=== PATIENT | female | born 1975 | race Caucasian/White ===

== ENCOUNTER 2017-09-26 20:36 | Emergency (ER) | payer MEDICAID ==
[2017-09-26] MEDS ORDERED: predniSONE 20 MG TABLET PO STA (20:38)
[2017-09-26] MEDS ORDERED: HYDROcod/ACET 5/325 Prepack 4 PO STA (20:38)
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
== END 2017-09-26 21:06 | disposition home or self-care (01) ==
LOC: ED 20:36
DX: M54.12 Radiculopathy, cervical region (principal)
CPT/HCPCS: 99281; 99283; J7512

== ENCOUNTER 2018-11-16 14:25 | Emergency (ER) | payer MEDICAID, OTHER ==
[2018-11-16 14:56] LABS: BASOPHILS % (AUTO) 0.2 %; EOSINOPHILS # (AUTO) 0.1 10^3/uL (0.0-0.7); EOSINOPHILS % (AUTO) 1.6 %; HGB - HEMOGLOBIN 15.1 g/dL (12.0-16.0); LYMPHOCYTES # (AUTO) 2.6 10^3/uL (1.5-3.5); LYMPHOCYTES % (AUTO) 31.3 %; MEAN CORPUSCULAR HGB CONC 34.6 g/dL (32.0-36.0); MEAN CORPUSCULAR VOLUME 92.6 fL (81.0-99.0); MEAN PLATELET VOLUME 10.6 fL (7.9-10.8); MONOCYTES # (AUTO) 0.6 10^3/uL (0.0-1.0); MONOCYTES % (AUTO) 6.8 %; NEUTROPHILS % (AUTO) 59.7 %; PLT - PLATELET COUNT 189 10^3/uL (130-450); RED BLOOD COUNT 4.72 10^6/uL (4.20-5.40); RED CELL DISTRIBUTION WIDTH 13.1 % (12.0-15.0); WHITE BLOOD COUNT 8.3 x10^3/uL (4.8-10.8)
--- NOTE | 2018-11-16 15:00 | ED Physician Documentation ---
History of Present Illness - Stated complaint Stated Complaint: LOSS OF VISON/EARS RINGING - Chief complaint Chief Complaint: Neuro - Additonal information Additional information: This is a 43-year-old female with a history of migraines, hysterectomy, who presents with improving vision changes in her right eye, right facial tingling, and right arm discomfort. This afternoon patient was at work, when she walked into her room she stood in the like she was looking through fog on her right eye, this was painless. She also developed some feeling of tingling/reduced sensation over her right face, and in her right arm. Her vision has improved but she still sees flashers and halos in her right eye. She denies surgeries for retinal issues in the past. She is not on any blood thinners. She also has ringing in her ears. Review of Systems Constitutional: denies: Fever Eyes: reports: Decreased vision Ears: reports: Tinnitus/ringing Nose: denies: Congestion Cardiac: denies: Chest pain / pressure Respiratory: denies: Dyspnea GI: denies: Abdominal Pain Neurologic: reports: Numbness. denies: Generalized weakness PD PAST MEDICAL HISTORY - Past Medical History Past Medical History: Yes Neuro: Migraines - Present Medications Home Medications: Ambulatory Orders Medication Instructions Recorded Confirmed HYDROcod/ACETAM 5/325 [Sunflower 5/325] 1 - 2 ea PO Q6H PRN #15 tablet 09/26/17 predniSONE [Deltasone] 20 mg PO [id number] #21 tab 09/26/17 - Allergies Allergies/Adverse Reactions: Allergies Allergy/AdvReac Type Severity Reaction Status Date / Time Penicillins Allergy Rash Verified 11/16/18 14:34 PD ED PE NORMAL - Vitals Vital signs reviewed: Yes - General General: Alert and oriented X 3, No acute distress - HEENT HEENT: Atraumatic, PERRL, EOMI, Other (Conjunctiva normal in appearance. Visual sanchez normal to confrontation bilaterally. ) - Neck Neck: Supple, no meningeal sign - Cardiac Cardiac: RRR - Respiratory Respiratory: Clear bilaterally - Abdomen Abdomen: Normal bowel sounds, Soft, Non tender, Non distended - Derm Derm: Warm and dry - Extremities Extremities: No deformity - Neuro Neuro: Alert and oriented X 3, coding compliance specialist 2-12 intact, No motor deficit, No sensory deficit, Normal speech - Psych Psych: Normal mood, Normal affect Results - Vitals Vitals: Oxygen O2 Source Room air - Labs Labs: Laboratory Tests 11/16/18 11/16/18 11/16/18 14:37 14:50 14:50 WBC 8.3 RBC 4.72 Hgb 15.1 Hct 43.7 MCV 92.6 MCH 32.0 H MCHC 34.6 RDW 13.1 Plt Count 189 MPV 10.6 Neut # (Auto) 5.0 Lymph # (Auto) 2.6 Kittson # (Auto) 0.6 Eos # (Auto) 0.1 Baso # (Auto) 0.0 Absolute Nucleated RBC 0.00 Nucleated RBC % 0.0 Sodium 139 Potassium 3.8 Chloride 103 Carbon Dioxide 24 Anion Gap 12.0 BUN 18 Creatinine 0.7 Estimated GFR (MDRD) 91 Glucose 88 POC Whole Bld Glucose 87 Calcium 9.4 Total Bilirubin 1.1 H AST 13 ALT 13 Alkaline Phosphatase 64 Total Protein 7.3 Albumin 4.3 Globulin 3.0 Albumin/Globulin Ratio 1.4 Lipase 26 TSH 11/16/18 14:50 WBC RBC Hgb Hct MCV MCH MCHC RDW Plt Count MPV Neut # (Auto) Lymph # (Auto) Kittson # (Auto) Eos # (Auto) Baso # (Auto) Absolute Nucleated RBC Nucleated RBC % Sodium Potassium Chloride Carbon Dioxide Anion Gap BUN Creatinine Estimated GFR (MDRD) Glucose POC Whole Bld Glucose Calcium Total Bilirubin AST ALT Alkaline Phosphatase Total Protein Albumin Globulin Albumin/Globulin Ratio Lipase TSH 2.76 - Rads (name of study) Head CT Radiology: Other (No acute intracranial abnormality) PD MEDICAL DECISION MAKING - ED course Complexity details: considered differential (Retinal detachment, vitreous detachment, migraine, glaucoma, ICH) ED course: On exam patient is well-appearing, she is hypertensive. Her neurologic exam is normal. Visual acuity intact, Ocular US shows no obvious abnormality. Visual sanchez intact. IOP 17 on right, [address] is normal. I Re-evaluated at 4:45, no longer having any numbness symptoms, still having foggy vision, feels low energy On repeat evaluation she now has fogginess and flashers in both eyes, though it is improving in her right eye. Overall she says her vision is greatly improved. Her numbness completely improved. Repeat neuro exam normal. I do not see any signs of stoke, her combination of symptoms would be highly unlikely, particularly the numbness resolving and the foggy vision generalizing to both eyes without other vision changes. Occular pathology such as retinal/vitrous detachment highly unlikely given her symptoms wax and wane and spread to both eyes, and are now improving. I think this may be secondary to a migraine, and given her improvement. I feel she is safe for outpatient follow up. If she has persistent symptoms she knows to return, and to see an assistant federal public defender tomorrow. Pt agrees and was discharged. Departure - Departure Disposition: Home, Self Care Clinical Impression: Change in vision Condition: Stable Instructions: ED Cephalgia Unspecified Follow-Up: Your,PCP [Other] (As soon as possible for follow up on symptoms) Luis Angel Vickers [Other] (If having any continued symptoms, call for urgent appt tmrw Address: [address] [place] [id number] ) Comments: You were seen today for vision change in her right eye. Your pressure, visual sanchez, CT scan of your head are unremarkable. I do not see any abnormalities on your ultrasound. This might be a migraine headache. If you are having any continued symptoms, you should see an assistant federal public defender tomorrow. If you are unable to get an appoint with the assistant federal public defender, you may return to an emergency department. If you develop any new symptoms such as confusion, slurred speech, weakness, cuts in your visual field, or numbness, return to the emergency department immediately. Discharge Date/Time: 11/16/18 18:29
[2018-11-16] MEDS ORDERED: PROPARACAINE 0.5% OPHTH DROPS 15 ML RIGHTEYE STA (15:03)
[2018-11-16 15:07] LABS: ALBUMIN 4.3 g/dL (3.2-5.5); ALBUMIN/GLOBULIN RATIO 1.4 (1.0-2.2); BILIRUBIN,TOTAL 1.1 mg/dL (0.2-1.0); CALCIUM 9.4 mg/dL (8.5-10.3); CREATININE 0.7 mg/dL (0.4-1.0); TOTAL PROTEIN 7.3 g/dL (6.7-8.2)
--- NOTE | 2018-11-16 15:38 | CT Report ---
Reason: RIGHT EYE VISION CHANGE, SUBJECTIVE SENSATION CHANGE Procedure Date: 11/16/2018 Accession Number: [id number] / [id number] Procedure: CT - HEAD WO CPT Code: FULL RESULT: EXAM: CT HEAD EXAM DATE: 11/16/2018 03:27 PM. CLINICAL HISTORY: RIGHT EYE VISION CHANGE, SUBJECTIVE SENSATION CHANGE. COMPARISON: None. TECHNIQUE: Multiaxial CT images were obtained from the foramen magnum to the vertex. Reformats: Sagittal and coronal. IV contrast: None. In accordance with CT protocol optimization, one or more of the following dose reduction techniques were utilized for this exam: automated exposure control, adjustment of mA and/or KV based on patient size, or use of iterative reconstructive technique. FINDINGS: Parenchyma: No intraparenchymal hemorrhage. No evidence of mass, midline shift, or CT findings of infarction. Peguero-white differentiation is distinct. Extraaxial Spaces: Normal for age. No subdural or epidural collections identified. Ventricles: Normal in size and position. Sinuses and Orbits: Imaged paranasal sinuses, orbits, and mastoids show no significant abnormality. Bones: No evidence of fracture or calvarial defect. Other: None. IMPRESSION: No acute intracranial CT abnormality. RADIA
[2018-11-16] MEDS ORDERED: KETOROLAC 15 MG/ML VIAL IM STA (17:50)
[2018-11-16] MEDS ORDERED: METOCLOPRAMIDE 10 MG TABLET PO STA (17:50)
[2018-11-16 18:18] VITALS: BP 141/101
== END 2018-11-16 18:29 | disposition home or self-care (01) ==
LOC: ED 14:25
DX: H53.19 Other subjective visual disturbances (principal); R20.2 Paresthesia of skin; H93.19 Tinnitus, unspecified ear
CPT/HCPCS: 36415; 70450; 80053; 83690; 84443; 85025; 96372; 99282; 99284; A9270; J3490

== ENCOUNTER 2019-02-12 09:52 | Outpatient (CLI) | payer MEDICAID ==
[2019-02-12 12:52] LABS: BASOPHILS % (AUTO) 0.4 %; EOSINOPHILS # (AUTO) 0.1 10^3/uL (0.0-0.7); EOSINOPHILS % (AUTO) 1.6 %; HGB - HEMOGLOBIN 16.5 g/dL (12.0-16.0); LYMPHOCYTES # (AUTO) 1.7 10^3/uL (1.5-3.5); LYMPHOCYTES % (AUTO) 22.4 %; MEAN CORPUSCULAR HEMOGLOBIN 30.8 pg (27.0-31.0); MEAN CORPUSCULAR VOLUME 93.5 fL (81.0-99.0); MEAN PLATELET VOLUME 11.1 fL (7.9-10.8); MONOCYTES # (AUTO) 0.5 10^3/uL (0.0-1.0); MONOCYTES % (AUTO) 7.1 %; NEUTROPHILS # (AUTO) 5.1 10^3/uL (1.5-6.6); NEUTROPHILS % (AUTO) 68.1 %; PLT - PLATELET COUNT 201 10^3/uL (130-450); RED BLOOD COUNT 5.35 10^6/uL (4.20-5.40); RED CELL DISTRIBUTION WIDTH 13.2 % (12.0-15.0); WHITE BLOOD COUNT 7.5 x10^3/uL (4.8-10.8)
[2019-02-12 13:29] LABS: ALBUMIN 4.7 g/dL (3.2-5.5); ALBUMIN/GLOBULIN RATIO 1.3 (1.0-2.2); ALKALINE PHOSPHATASE 54 IU/L (42-121); ALT ALANINE AMINOTRANSFERASE 13 IU/L (10-60); AST ASPARTATE AMINOTRANSFERASE 15 IU/L (10-42); BILIRUBIN,TOTAL 1.4 mg/dL (0.2-1.0); BUN - BLOOD UREA NITROGEN 21 mg/dL (6-20); CARBON DIOXIDE - CO2 27 mmol/L (21-32); CHLORIDE 106 mmol/L (101-111); CHOL/HDL RATIO 3.4 (<4.4); CHOLESTEROL 189 mg/dL; CREATININE 0.7 mg/dL (0.4-1.0); GFR - MDRD 90 (>89); GLUCOSE 80 mg/dL (70-100); HDL CHOLESTEROL 55 mg/dL; LDL CHOLESTEROL,CALCULATED 120 mg/dL; LDL/HDL RATIO 2.2 (<4.4); SODIUM 141 mmol/L (135-145); TOTAL PROTEIN 8.4 g/dL (6.7-8.2); VLDL CHOLESTEROL 14 mg/dL
[2019-02-12 14:03] LABS: HEMOGLOBIN A1C 0.54 g/dL; HEMOGLOBIN A1C % 5.1 % (4.6-6.2)
[2019-02-12 21:13] LABS: TRICHOMONAS VAGINALIS DNA NEGATIVE (NEGATIVE)
[2019-02-13 14:31] LABS: HEPATITIS C ANTIBODY REACTIVE (NON-REACTIVE)
[2019-02-13 16:51] LABS: HIV AG/AB 4TH GEN NON-REACTIVE (NON-REACTIVE)
[2019-02-16 12:51] LABS: HSV 1 IGG TYPE SPECIFIC AB 29.7 index; HSV 2 IGG TYPE SPECIFIC AB 15.4 index
[2019-02-17 12:21] LABS: HCV RNA QNT <1.18 NOT DETECTED Log IU/mL (NOT DETECTED); HCV RNA QUANT RT PCR <15 NOT DETECTED IU/mL (NOT DETECTED)
== END 2019-02-12 23:59 | disposition home or self-care (01) ==
LOC: LAB.N 09:52
PROVIDERS: ATTEND Family Medicine
DX: Z00.00 Encounter for general adult medical examination without abnormal findings (principal); Z11.3 Encounter for screening for infections with a predominantly sexual mode of transmission
CPT/HCPCS: 36415; 80053; 80061; 81599; 83036; 83721; 84443; 85025; 86592; 86695; 86696; 86803; 87389; 87491; 87591; 87661

== ENCOUNTER 2019-02-23 08:36 | Outpatient (CLI) | payer MEDICAID ==
--- NOTE | 2019-02-23 10:07 | Mammography Report ---
Reason: ROUTINE MAMMO Procedure Date: 02/23/2019 Accession Number: [id number] / [id number] Procedure: MGN - Screening Mammo Dig Bilat CPT Code: Final Report FULL RESULT: EXAM: Screening Mammo Dig Bilat DATE: 02/23/2019 9:12 AM CLINICAL HISTORY: Patient is a 44-year-old female presenting for baseline screening mammography. No reported family history of breast cancer. TECHNIQUE: (B) - Bilateral CC and MLO views were obtained. COMPARISON: None PARENCHYMAL PATTERN: (D) - The breasts demonstrate heterogeneously dense fibroglandular parenchyma bilaterally. FINDINGS: RIGHT BREAST: There are no suspicious masses, calcifications, or areas of distortion. LEFT BREAST: Obscured nodular asymmetry is noted in the inferior hemisphere. Recommend diagnostic evaluation given baseline examination. IMPRESSION: RIGHT BREAST: Negative examination. BI-RADS category 1. LEFT BREAST: Incomplete examination. BI-RADS category 0. RECOMMENDATION: Targeted diagnostic evaluation of the left breast to include mammography and ultrasound, if warranted. A final impression is pending at this time. BI-RADS CATEGORY: (0) - Incomplete Examination - need additional evaluation. STANDARD QUALIFYING STATEMENTS: 1. This examination was not reviewed with the aid of Computer-Aided Detection (CAD). 2. A negative or benign imaging report should not preclude biopsy if clinically suspicious findings are present. 3. Dense breasts may obscure an underlying neoplasm. 4. This examination was reviewed the aid of 3D breast imaging (tomosynthesis).
== END 2019-02-23 08:37 | disposition home or self-care (01) ==
LOC: DI.N 08:36
PROVIDERS: ATTEND Family Medicine
DX: Z12.31 Encounter for screening mammogram for malignant neoplasm of breast (principal); R92.8 Other abnormal and inconclusive findings on diagnostic imaging of breast
CPT/HCPCS: 77067

== ENCOUNTER 2019-03-10 08:09 | Outpatient (CLI) | payer MEDICAID ==
--- NOTE | 2019-03-10 11:38 | Mammography Report ---
Reason: ABNORMAL MAMMO Procedure Date: 03/10/2019 Accession Number: [id number] / [id number] Procedure: ERIK - Diag Special Views Dig LT CPT Code: Final Report FULL RESULT: EXAM: Diag Special Views Dig LT DATE: 03/10/2019 9:20 AM CLINICAL HISTORY: Diagnostic examination. The patient is recalled from baseline screening examination for nodular asymmetry in the left breast. TECHNIQUE: (L) - Left CC, spot CC, spot MLO, ML images are obtained. Focused left breast ultrasound is performed. COMPARISON: 02/23/2019. PARENCHYMAL PATTERN: (D) - The breast(s) demonstrate(s) heterogeneously dense fibroglandular parenchyma. FINDINGS: Mammographic evaluation demonstrates multiple partially obscured isodense nodules on 3-D mammography in the lower hemisphere of the breast, 2.8 to 4.6 cm from the nipple. Focused left breast ultrasound is performed with demonstrate multiple simple appearing cysts which are well-defined, demonstrate increased through transmission and thin mooney without solid component, typically benign. These correspond in size and location to the mammographic and 3-D tomographic findings, 5:00 3 cm from the nipple measuring up to 0.6 cm, 6:00 3 cm from the nipple measuring up to 0.6 cm. There are no suspicious masses, calcifications, or areas of distortion. IMPRESSION: Benign findings. BI-RADS category 2. RECOMMENDATION: (ANNUAL) - Recommend routine annual screening mammography. BI-RADS CATEGORY: (2) - Benign Findings. STANDARD QUALIFYING STATEMENTS: 1. This examination was not reviewed with the aid of Computer-Aided Detection (CAD). 2. A negative or benign imaging report should not preclude biopsy if clinically suspicious findings are present. 3. Dense breasts may obscure an underlying neoplasm. 4. This examination was reviewed with the aid of 3D breast imaging (tomosynthesis).
== END 2019-03-10 08:10 | disposition home or self-care (01) ==
LOC: DI 08:09
PROVIDERS: ATTEND Family Medicine
DX: N60.12 Diffuse cystic mastopathy of left breast (principal)
CPT/HCPCS: 76642

== ENCOUNTER 2019-04-14 04:49 | Emergency (ER) | payer MEDICAID ==
[2019-04-14] MEDS ORDERED: CHERRY SYRUP 10 ML UDC PO ONE (05:30)
[2019-04-14] MEDS ORDERED: KETOROLAC 60 MG/2 ML VIAL IM STA (05:30)
[2019-04-14] MEDS ORDERED: DEXAMETHASONE 10 MG/ML VIAL PO STA (05:30)
--- NOTE | 2019-04-14 06:14 | ED Physician Documentation ---
PD HPI URI - Stated complaint Stated Complaint: ENGEL/FEVER/COUGH - Chief complaint Chief Complaint: Fever - History obtained from History obtained from: Patient - History of Present Illness Timing - onset: Yesterday Timing duration: Days (2) Timing details: Gradual onset, Still present Associated symptoms: Fever, Nasal congestion, Rhinorrhea, Sinus pain, Dry cough, Other (headache) Improves by: Rest, Medication Similar symptoms before: Diagnosis (migraine and otitis media) Recently seen: Not recently seen - Additional information Additional information: 44-year-old female has developed a fever and cough and she has some pain in her ears and a headache. She states that her headaches will turn into a migraine and she has had have treatment for those previously she states that her headache is mounting now and she really think she needs some treatment this morning. Review of Systems Constitutional: reports: Fever, Chills, Myalgias, Fatigue Eyes: denies: Decreased vision Ears: reports: Ear pain Nose: reports: Rhinorrhea / runny nose, Congestion Throat: denies: Sore throat Cardiac: denies: Chest pain / pressure, Palpitations Respiratory: reports: Cough. 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 - Present Medications Home Medications: Ambulatory Orders Medication Instructions Recorded Confirmed Azithromycin [Zithromax] 250 mg PO DAILY #4 tablet 04/14/19 - Allergies Allergies/Adverse Reactions: Allergies Allergy/AdvReac Type Severity Reaction Status Date / Time Penicillins Allergy Rash Verified 11/16/18 14:34 - Social History Does the pt smoke?: No Smoking Status: Never smoker Does the pt drink ETOH?: No Does the pt have substance abuse?: Yes Substance Use and Type: Marijuana - Immunizations Immunizations are current?: Yes PD ED PE NORMAL - Vitals Vital signs reviewed: Yes (hypertensive ) - General General: Alert and oriented X 3, No acute distress, Well developed/nourished - HEENT HEENT: Atraumatic, PERRL, EOMI, Other (There is mild inflammation to the left TM with some distortion of the landmarks the right TM is clear the pharynx is unremarkable.) - Neck Neck: Supple, no meningeal sign, No bony TTP - Cardiac Cardiac: RRR, No murmur - Respiratory Respiratory: No respiratory distress, Clear bilaterally - Abdomen Abdomen: Soft, Non tender - Back Back: No CVA TTP, No spinal TTP - Derm Derm: Normal color, Warm and dry, No rash - Extremities Extremities: No deformity, No edema - Neuro Neuro: Alert and oriented X 3, butt welder 2-12 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, No motor deficit, No sensory deficit, Normal speech Eye Opening: Spontaneous Motor: Obeys Commands Verbal: Oriented GCS Score: 15 - Psych Psych: Normal mood, Normal affect Results - Vitals Vitals: Vital Signs - 24 hr 04/14/19 04:53 Temperature 37.0 C Heart Rate 80 Respiratory 18 Rate Blood Pressure 139/88 H O2 Saturation 96 Oxygen O2 Source Room air - Labs Labs: Laboratory Tests 04/14/19 05:53 Influenza A (Rapid) Negative Influenza B (Rapid) Negative PD MEDICAL DECISION MAKING - ED course Complexity details: reviewed old records, considered differential, d/w patient ED course: 44-year-old female with a history of migraines has developed a cough and congestion with fever her influenza screen is negative she does have otitis on exam she has had otitis previously she is allergic to penicillin and has had improvement with use of a azithromycin previously here in the emergency department she is administered dexamethasone 10 mg orally and 60 mg of Toradol IM with some improvement in her headache. We will place her on a course of azithromycin for otitis and give her a note for work for 2 days. Departure - Departure Disposition: 01 Home, Self Care Clinical Impression: Otitis media Qualifiers: Otitis media type: suppurative Chronicity: acute Laterality: left Recurrence: non-recurrent Spontaneous tympanic membrane rupture: without spontaneous rupture Qualified Code(s): H66.002 - Acute suppurative otitis media without spontaneous rupture of ear drum, left ear Cephalalgia Qualifiers: Headache type: unspecified Headache chronicity pattern: acute headache Intractability: not intractable Qualified Code(s): R51 - Headache Condition: Stable Instructions: ED Cephalgia Unspecified, ED Otitis Media Acute Adult Follow-Up: HALEY SOTO MD [Primary Care Provider] - Prescriptions: Azithromycin [Zithromax] 250 mg PO DAILY #4 tablet Forms: Activity restrictions
[2019-04-14] MEDS ORDERED: AZITHROMYCIN 250 MG TABLET PO STA (06:23)
[2019-04-14 06:40] VITALS: BP 120/86
== END 2019-04-14 06:42 | disposition home or self-care (01) ==
LOC: ED 04:49
DX: H66.002 Acute suppurative otitis media without spontaneous rupture of ear drum, left ear (principal); R51 Headache; Z88.0 Allergy status to penicillin; Z86.69 Personal history of other diseases of the nervous system and sense organs
CPT/HCPCS: 87275; 87276; 96372; 99283; 99284; A9270

== ENCOUNTER 2019-06-11 12:55 | Outpatient (CLI) | payer MEDICAID ==
--- NOTE | 2019-06-11 23:36 | XRAY Report ---
Reason: NECK PAIN Procedure Date: 06/11/2019 Accession Number: [id number] / [id number] Procedure: XRN - Cervical Spine 2 View CPT Code: Final Report FULL RESULT: EXAM: CERVICAL SPINE RADIOGRAPHY EXAM DATE: 06/11/2019 01:54 PM. CLINICAL HISTORY: NECK PAIN. COMPARISONS: None. TECHNIQUE: 3 views. FINDINGS: Alignment: No spondylolisthesis. There is mild nonspecific reversal of the usual cervical lordosis centered at the C4-C5 level. Bones: The cervical vertebral bodies and posterior elements are well visualized from the skull base through C7-T1. No fractures or bone lesions. Disks: There is degenerative change with mild disk narrowing at C4-C5 and moderate disk narrowing at C5-C6. There is mild anterior and posterior endplate spurring at both levels. Facets: There is mild multilevel facet hypertrophy. Soft Tissues: Normal. No prevertebral soft tissue swelling. The visualized lung apices are clear. IMPRESSION: 1. No acute osseous abnormality of cervical spine. No evidence of fracture or subluxation. 2. Mild to moderate spondylosis and degenerative disk disease at C4-C5 and C5-C6 with mild disk narrowing at C4-C5 and moderate disk narrowing at C5-C6. 3. There is mild nonspecific reversal of the usual cervical lordosis centered at the C4-C5 level. RADIA
--- NOTE | 2019-06-12 14:07 | XRAY Report ---
Reason: NECK/SHOULDER PAIN Procedure Date: 06/11/2019 Accession Number: [id number] / [id number] Procedure: XRN - Shoulder 3 View RT CPT Code: Final Report FULL RESULT: EXAM: RIGHT SHOULDER RADIOGRAPHY EXAM DATE: 06/11/2019 01:54 PM. CLINICAL HISTORY: NECK/SHOULDER PAIN. COMPARISON: None available. TECHNIQUE: 3 views. FINDINGS: Bones: Normal. No fracture or bone lesion. Joints: The glenohumeral and acromioclavicular joints are normal. Soft tissues: The visualized hemithorax is unremarkable. No soft tissue swelling. IMPRESSION: Negative right shoulder. RADIA
== END 2019-06-11 12:56 | disposition home or self-care (01) ==
LOC: DI.N 12:55
PROVIDERS: ATTEND Family Medicine
DX: M47.812 Spondylosis without myelopathy or radiculopathy, cervical region (principal); M50.321 Other cervical disc degeneration at C4-C5 level
CPT/HCPCS: 72040

== ENCOUNTER 2019-09-06 12:35 | Emergency (ER) | payer MEDICAID ==
[2019-09-06 12:43] VITALS: BP 121/82
[2019-09-06] MEDS ORDERED: MELOXICAM 7.5 MG TABLET PO STA (13:06)
[2019-09-06] MEDS ORDERED: predniSONE 20 MG TABLET PO STA (13:06)
[2019-09-06] MEDS ORDERED: oxyCODONE 5 MG TABLET PO STA (13:06)
--- NOTE | 2019-09-06 13:09 | ED Physician Documentation ---
History of Present Illness - Stated complaint Stated Complaint: R HIP PAIN - Chief complaint Chief Complaint: Ext Problem - History obtained from History obtained from: Patient - History of Present Illness Timing: Yesterday Pain level max: 7 Pain level now: 5 - Additonal information Additional information: 44-year-old female presents to the emergency department complaining of right low back/hip pain. Worse with movement and better with rest. 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 Took Motrin and Tylenol without relief. No fevers. No trauma. No numbness or tingling. No loss of bowel or bladder control. No IV drug use. 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 - Present Medications Home Medications: Ambulatory Orders Medication Instructions Recorded Confirmed Azithromycin [Zithromax] 250 mg PO DAILY #4 tablet 04/14/19 Hydrocodone/Acetaminophen 1 - 2 each PO Q6H PRN #14 tablet 09/06/19 [Hydrocodon-Acetaminophen 5-325] Meloxicam [Mobic] 15 mg PO DAILY PRN #20 tablet 09/06/19 predniSONE [Deltasone] 10 mg PO [id number] #42 tab 09/06/19 - Allergies Allergies/Adverse Reactions: Allergies Allergy/AdvReac Type Severity Reaction Status Date / Time Penicillins Allergy Rash Verified 09/06/19 12:40 - Social History Does the pt smoke?: No Smoking Status: Never smoker Does the pt drink ETOH?: No Does the pt have substance abuse?: Yes - Immunizations Immunizations are current?: Yes PD ED PE NORMAL - Vitals Vital signs reviewed: Yes - General General: Alert and oriented X 3, No acute distress - HEENT HEENT: Moist mucous membranes - Neck Neck: Supple, no meningeal sign - Cardiac Cardiac: RRR - Respiratory Respiratory: No respiratory distress, Clear bilaterally - Back Back: Other (Tender to palpation over the right SI joint. Reproduces her pain. No swelling. No skin changes. Otherwise normal exam of the back, spine and hip.) - Derm Derm: Warm and dry - Extremities Extremities: Other (Normal bilateral lower extremity patellar and ankle jerk reflexes. Normal great toe extension bilaterally. no saddle anesthesia) - Neuro Neuro: Alert and oriented X 3, client experience administrator 2-12 intact, No motor deficit, No sensory deficit, Normal speech Results - Vitals Vitals: Vital Signs - 24 hr 09/06/19 12:40 Temperature 36.5 C Heart Rate 74 Respiratory 16 Rate Blood Pressure 121/82 H O2 Saturation 98 Oxygen O2 Source Room air PD MEDICAL DECISION MAKING - ED course Complexity details: considered differential, d/w patient ED course: 44-year-old female with right-sided sacroiliitis. Will place on steroids for home. She is well-appearing, nontoxic. Afebrile. No indication for imaging. No evidence of epidural abscess, cauda equina. No evidence of fracture. Patient counseled regarding signs and symptoms for which I believe and urgent re-evaluation would be necessary. Patient with good understanding of and agreement to plan and is comfortable going home at this time This document was made in part using voice recognition software. While efforts are made to proofread this document, sound alike and grammatical errors may occur. Departure - Departure Disposition: 01 Home, Self Care Clinical Impression: Sacroiliitis Condition: Good Instructions: ED Sacroiliitis Follow-Up: HALEY SOTO MD [Primary Care Provider] - Within 1 week Prescriptions: Hydrocodone/Acetaminophen [Hydrocodon-Acetaminophen 5-325] 1 - 2 each PO Q6H PRN #14 tablet PRN Reason: pain Meloxicam [Mobic] 15 mg PO DAILY PRN #20 tablet PRN Reason: pain predniSONE [Deltasone] 10 mg PO [id number] #42 tab Comments: Use the medications prescribed. Return if you worsen. Follow-up with your doctor for further care. This should improve over the next few days.
== END 2019-09-06 13:32 | disposition home or self-care (01) ==
LOC: ED 12:35
DX: M46.1 Sacroiliitis, not elsewhere classified (principal)
CPT/HCPCS: 99283; 99284; A9270; J7512

== ENCOUNTER 2019-10-10 09:54 | Emergency (ER) | payer MEDICAID ==
[2019-10-10 10:01] VITALS: BP 130/80
[2019-10-10] MEDS ORDERED: CHERRY SYRUP 10 ML UDC PO ONE (10:29)
[2019-10-10] MEDS ORDERED: DEXAMETHASONE 10 MG/ML VIAL PO STA (10:29)
[2019-10-10] MEDS ORDERED: HYDROcod/ACETAM 5/325 MG TABLET PO STA (10:29)
--- NOTE | 2019-10-10 10:33 | ED Physician Documentation ---
PD HPI SKIN - Stated complaint Stated Complaint: SANDRA HAND PX - Chief complaint Chief Complaint: Wound - History obtained from History obtained from: Patient - History of Present Illness Timing - onset: How many days ago (2-3) Timing - duration: Days Timing - details: Gradual onset, Still present Location: RUE, LUE, Other (having significant rash both hands, worse than in the past, with cracking and raw skin despite usual ointments. She is also having some pains in hips and right shoulder. Has some rash back of neck that is worse than usual as well. Hands have chronic rash, but much worse few days.) Quality / character: Painful, Swelling. No: Discolored, Vesicular, Draining Improved by: Oral steroids (she had been on oral steroids recently for hip pain and noted near resolution of chronic hand/neck rash. It is back worse than baseline now.) Associated symptoms: Joint pain. No: Fever, Myalgias, N/V/D Contributing factors: Other (she does do some gardening and uses gloves, so is suggested to check material of it (rubbery kind). She uses nitrile gloves at work sometimes. No other new soaps/chemicals/etc.). No: Exposed to medication, Exposed to soap / lotion Similar symptoms before: No diagnosis (She has seen her primary care and is tried several nciz-[id number] medicines creams and lotions for the rash. She was getting dermatology referral but has not heard back on that referral for the last 2 months. No prescription medicines according to the patient) Review of Systems Constitutional: denies: Fever, Chills Nose: denies: Rhinorrhea / runny nose, Congestion Throat: denies: Sore throat Respiratory: denies: Cough GI: denies: Abdominal Pain, Nausea, Vomiting, Diarrhea Skin: reports: Rash (Both hands of the primary low Tat[place] of chronic rash on the palms and between the fingers. Some on the back of the hands. She also has it often on the back of her neck. None on the mayen or elbows. 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 10/10/19 Hydrocodone/Acetaminophen [[place] 1 each PO Q6H PRN #14 tablet 10/10/19 5-325 Tablet] Vits A and D/White Pet/Lanolin 1 applic TP BID #60 oint...g. 10/10/19 [Vitamin A and D Ointment] dexAMETHasone [Decadron] 4 mg PO DAILY #5 tablet 10/10/19 - Allergies Allergies/Adverse Reactions: Allergies Allergy/AdvReac Type Severity Reaction Status Date / Time Penicillins Allergy Rash Verified 10/10/19 10:01 - Social History Does the pt smoke?: No Smoking Status: Never smoker Does the pt drink ETOH?: No Does the pt have substance abuse?: Yes - Immunizations Immunizations are current?: Yes PD ED PE NORMAL - Vitals Vital signs reviewed: Yes - General General: Alert and oriented X 3, Well developed/nourished, Other (She appears uncomfortable in considerable pain from her hands and is holding them palms open hands up. Both palms are cracked and peeled with raw skin in furrows. There is hyperkeratotic skin otherwise and a rounded area. It extends between the fingers as well and some on the dorsum of the finger) - Neck Neck: Supple, no meningeal sign, No adenopathy, Other (Some hyperkeratotic with redness patch on the back of her neck.) - Cardiac Cardiac: RRR, No murmur, No rub - Respiratory Respiratory: Clear bilaterally - Derm Derm: Normal color, Warm and dry Results - Vitals Vitals: Vital Signs - 24 hr 10/10/19 09:59 Temperature 36.7 C Heart Rate 83 Respiratory 18 Rate Blood Pressure 130/80 O2 Saturation 100 Oxygen O2 Source Room air - Labs Labs: Laboratory Tests 10/10/19 10/10/19 11:04 11:04 WBC 5.3 RBC 4.54 Hgb 14.4 Hct 41.7 MCV 91.9 MCH 31.7 H MCHC 34.5 RDW 12.8 Plt Count 172 MPV 10.4 Neut # (Auto) 2.8 Lymph # (Auto) 1.9 [place] # (Auto) 0.4 Eos # (Auto) 0.2 Baso # (Auto) 0.0 Absolute Nucleated RBC 0.00 Nucleated RBC % 0.0 Sodium 138 Potassium 3.6 Chloride 102 Carbon Dioxide 25 Anion Gap 11.0 BUN 20 Creatinine 0.6 Estimated GFR (MDRD) 108 Glucose 121 H Calcium 9.2 Total Bilirubin 1.3 H AST 12 ALT 13 Alkaline Phosphatase 43 Total Protein 6.4 L Albumin 4.5 Globulin 1.9 L Albumin/Globulin Ratio 2.4 H Lipase 54 H PD MEDICAL DECISION MAKING - ED course Complexity details: reviewed results (Will obtain some autoimmune markers to give a initial work-up start for dermatology. She was given a direct referral name to dermatology and she should call and see if they will take her insurance. 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 Otherwise consider psoriasis versus nummular eczema. Potential for systemic disease such as lupus or rheumatoid), d/w patient Departure - Departure Disposition: 01 Home, Self Care Clinical Impression: Rash of hands, Psoriasiform dermatitis Condition: Stable Record reviewed to determine appropriate education?: Yes Instructions: ED Psoriasis Follow-Up: HALEY SOTO MD [Primary Care Provider] - [facility] [Provider Group] Jay Taylor PA-C [Physician No Access] - Prescriptions: Betamethasone Valerate 1 applic TP BID PRN #15 cream..g. PRN Reason: Dry Skin dexAMETHasone [Decadron] 4 mg PO DAILY #5 tablet Hydrocodone/Acetaminophen [[place] 5-325 Tablet] 1 each PO Q6H PRN #14 tablet PRN Reason: Pain Vits A and D/White Pet/Lanolin [Vitamin A and D Ointment] 1 applic TP BID #60 oint...g. Comments: Be wary of skin contacts for her hand such as gardening gloves and gloves at work. 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 Oral steroid of dexamethasone daily for several days to decrease the flareup. You can also use topical steroid very lightly to the rashes twice daily (this is called betamethasone). You can continue the topical steroid as needed until it improves well or for recurrent flareups. Also use a skin emollient such as vitamin a and D lightly once or twice daily. You can use the skin cream that you have been using as well. Follow-up with dermatology regarding further evaluation of the rash. Prior to the appointment, you can stop using any medications except for a skin lotion for several days to week to allow some of it to come out to aid in diagnosis. You can take pictures of it currently to have to show as well. Discharge Date/Time: 10/10/19 11:08
[2019-10-10 11:10] LABS: BASOPHILS % (AUTO) 0.4 %; EOSINOPHILS # (AUTO) 0.2 10^3/uL (0.0-0.7); EOSINOPHILS % (AUTO) 2.8 %; HGB - HEMOGLOBIN 14.4 g/dL (12.0-16.0); LYMPHOCYTES # (AUTO) 1.9 10^3/uL (1.5-3.5); LYMPHOCYTES % (AUTO) 35.8 %; MEAN CORPUSCULAR HEMOGLOBIN 31.7 pg (27.0-31.0); MEAN CORPUSCULAR HGB CONC 34.5 g/dL (32.0-36.0); MEAN CORPUSCULAR VOLUME 91.9 fL (81.0-99.0); MEAN PLATELET VOLUME 10.4 fL (7.9-10.8); MONOCYTES # (AUTO) 0.4 10^3/uL (0.0-1.0); MONOCYTES % (AUTO) 8.3 %; NEUTROPHILS # (AUTO) 2.8 10^3/uL (1.5-6.6); NEUTROPHILS % (AUTO) 52.1 %; PLT - PLATELET COUNT 172 10^3/uL (130-450); RED BLOOD COUNT 4.54 10^6/uL (4.20-5.40); RED CELL DISTRIBUTION WIDTH 12.8 % (12.0-15.0); WHITE BLOOD COUNT 5.3 x10^3/uL (4.8-10.8)
[2019-10-10 11:24] LABS: ALBUMIN 4.5 g/dL (3.2-5.5); ALBUMIN/GLOBULIN RATIO 2.4 (1.0-2.2); BILIRUBIN,TOTAL 1.3 mg/dL (0.2-1.0); CALCIUM 9.2 mg/dL (8.5-10.3); CREATININE 0.6 mg/dL (0.4-1.0); TOTAL PROTEIN 6.4 g/dL (6.7-8.2)
[2019-10-10 11:49] LABS: RHEUMATOID FACTOR NEGATIVE (Negative)
== END 2019-10-10 11:08 | disposition home or self-care (01) ==
LOC: ED 09:54
DX: L40.8 Other psoriasis (principal); L30.8 Other specified dermatitis; M25.551 Pain in right hip; M25.552 Pain in left hip; M25.511 Pain in right shoulder
CPT/HCPCS: 36415; 80053; 83690; 85025; 85651; 86038; 86430; 99283; 99284; A9270

== ENCOUNTER 2019-11-02 11:15 | Outpatient (CLI) | payer MEDICAID ==
--- NOTE | 2019-11-02 11:56 | XRAY Report ---
PROCEDURE: Lumbar Spine Complete INDICATIONS: SACROILIITIS TECHNIQUE: 4 views of the lumbar spine were acquired. COMPARISON: None. FINDINGS: Bones: 5 mus-[id number] vertebrae are present. There is normal bony alignment. No acute vertebral body compression fractures. Multilevel lumbar spondylitic changes and associated facet arthropathy. Findings are most pronounced at L2-3. No evidence for pars defects on the oblique views. No suspicio us bony lesions. Visualized portions of the sacroiliac joints appear unremarkable. Soft tissues: Overlying bowel gas pattern is normal. No suspicious soft tissue calcifications. IMPRESSION: Lumbar spine without acute fracture or malalignment. Multilevel lumbar spondylosis most pronounced at L2-3. Reviewed by: Juan Mendoza MD on 11/02/2019 11:55 AM PDT Approved by: Juan Mendoza MD on 11/02/2019 11:55 AM PDT Station ID: [id number]
== END 2019-11-02 11:16 | disposition home or self-care (01) ==
LOC: DI 11:15
PROVIDERS: ATTEND Family Medicine
DX: M47.816 Spondylosis without myelopathy or radiculopathy, lumbar region (principal)
CPT/HCPCS: 72110

== ENCOUNTER 2019-11-13 20:15 | Emergency (ER) | payer MEDICAID ==
--- NOTE | 2019-11-13 21:36 | ED Physician Documentation ---
History of Present Illness - Stated complaint Stated Complaint: RT SHOULDER/NECK PX - Chief complaint Chief Complaint: Trauma Ext - History obtained from History obtained from: Patient - Additonal information Additional information: Patient's 44-year-old female with a chief complaint of left trapezius muscle spasm after she received physical therapy with deep tissue stimulation to her upper back bilaterally approximately 24 hours ago she now complains of severe muscle spasms in her left trapezium she denies headache, midline neck pain, fevers or rashes. Review of Systems Constitutional: reports: Reviewed and negative Eyes: reports: Reviewed and negative Ears: reports: Reviewed and negative Nose: reports: Reviewed and negative Throat: reports: Reviewed and negative Cardiac: reports: Reviewed and negative Respiratory: reports: Reviewed and negative GI: reports: Reviewed and negative : reports: Reviewed and negative Skin: reports: Reviewed and negative Musculoskeletal: reports: Other (Left trapezius muscle spasms) Neurologic: reports: Reviewed and negative Psychiatric: reports: Reviewed and negative Endocrine: reports: Reviewed and negative Immunocompromised: reports: Reviewed and negative PD PAST MEDICAL HISTORY - Past Medical History Past Medical History: Yes Cardiovascular: None Respiratory: None Neuro: Migraines Endocrine/Autoimmune: None GI: None PHYS ASST: None : None HEENT: None Psych: None Musculoskeletal: Osteoarthritis Derm: Psoriasis - Past Surgical History 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 10/10/19 Hydrocodone/Acetaminophen [[place] 1 each PO Q6H PRN #14 tablet 10/10/19 5-325 Tablet] Vits A and D/White Pet/Lanolin 1 applic TP BID #60 oint...g. 10/10/19 [Vitamin A and D Ointment] dexAMETHasone [Decadron] 4 mg PO DAILY #5 tablet 10/10/19 diazePAM [Valium] 5 mg PO BID PRN #7 tablet 11/13/19 - Allergies Allergies/Adverse Reactions: Allergies Allergy/AdvReac Type Severity Reaction Status Date / Time Penicillins Allergy Rash Verified 11/13/19 20:25 - Social History Does the pt smoke?: No Smoking Status: Never smoker Does the pt drink ETOH?: No Does the pt have substance abuse?: Yes Substance Use and Type: Marijuana - Immunizations Immunizations are current?: Yes - POLST Patient has POLST: No PD ED PE NORMAL - Vitals Vital signs reviewed: Yes - General General: Alert and oriented X 3, No acute distress, Well developed/nourished - HEENT HEENT: PERRL - Neck Neck: Supple, no meningeal sign, No bony TTP, Thyroid normal, No JVD, No bruit, Other (The neck is soft and supple there is no cervical step-offs or deformities there is no swelling or ecchymosis or crepitus.Full range of motion of the cervical spine in flexion, extension, sidebending and rotation on passive and active range of motion.) - Cardiac Cardiac: RRR, No murmur, Strong equal pulses - Respiratory Respiratory: No respiratory distress, Clear bilaterally - Abdomen Abdomen: Normal bowel sounds, Soft, Non tender, Non distended - Back Back: No CVA TTP, No spinal TTP, Other (Ropiness without edema or bogginess of the left trapezius region no ecchymosis no swelling no crepitus there is diffuse muscle spasms in the left trapezius as well as the left rhomboid and myofascial restriction as well.) - Derm Derm: Warm and dry - Extremities Extremities: No deformity - Neuro Neuro: Alert and oriented X 3, lighting adviser 2-12 intact, No motor deficit, No sensory deficit, Normal speech - Psych Psych: Normal mood, Normal affect Results - Vitals Vitals: Vital Signs - 24 hr 11/13/19 20:22 Temperature 37.0 C Heart Rate 82 Respiratory 18 Rate Blood Pressure 136/81 H O2 Saturation 96 Oxygen O2 Source Room air PD MEDICAL DECISION MAKING - ED course Complexity details: considered differential ED course: Patient's history and physical exam are consistent with acute muscle spasm and myofascial restriction. There is no midline step-offs or deformities of the cervical thoracic or lumbar spine. Patient will be treated with p.o. Valium. Departure - Departure Disposition: Home, Self Care Clinical Impression: Trapezius muscle spasm Condition: Stable Instructions: ED Spasm Muscle Follow-Up: HALEY SOTO MD [Primary Care Provider] - Prescriptions: diazePAM [Valium] 5 mg PO BID PRN #7 tablet PRN Reason: Spasms Comments: Please follow-up with your primary care provider on Friday. Take Valium as needed for your muscle spasms.
[2019-11-13] MEDS ORDERED: diazePAM 5 MG TABLET PO STA (21:41)
[2019-11-13 21:54] VITALS: BP 115/76
== END 2019-11-13 21:54 | disposition home or self-care (01) ==
LOC: ED 20:15
DX: M62.830 Muscle spasm of back (principal)
CPT/HCPCS: 99282; 99284; A9270

== ENCOUNTER 2020-01-20 09:18 | Emergency (ER) | payer MEDICAID ==
[2020-01-20] MEDS ORDERED: TETANUS/DIPHTHERIA/PERTUSSIS 0.5 ML SYRINGE IM ONE (09:31)
--- NOTE | 2020-01-20 09:58 | ED Physician Documentation ---
PD HPI UPPER EXT INJURY - Stated complaint Stated Complaint: FINGER LAC - Chief complaint Chief Complaint: Laceration - History obtained from History obtained from: Patient - History of Present Illness Location: Left, Finger (3rd) Type of injury: Laceration Where injury occurred: Home Timing - onset: Last night Timing - duration: Hours (12) Timing - details: Abrupt onset Pain level max: 4 Pain level now: 3 Improved by: Rest Worsened by: Moving, Palpating Review of Systems Constitutional: denies: Fever, Chills Respiratory: denies: Cough GI: denies: Vomiting, Diarrhea PD PAST MEDICAL HISTORY - Past Medical History Past Medical History: Yes Cardiovascular: None Respiratory: None Neuro: Migraines Endocrine/Autoimmune: None GI: None 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 : None HEENT: None Psych: None Musculoskeletal: Osteoarthritis Derm: Psoriasis - Past Surgical History 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 - Allergies Allergies/Adverse Reactions: Allergies Allergy/AdvReac Type Severity Reaction Status Date / Time Penicillins Allergy Rash Verified 01/20/20 09:27 - Social History Does the pt smoke?: No Smoking Status: Never smoker Does the pt drink ETOH?: No Does the pt have substance abuse?: Yes - Immunizations Immunizations are current?: Yes - POLST Patient has POLST: No PD ED PE NORMAL - Vitals Vital signs reviewed: Yes - General General: Alert and oriented X 3, No acute distress - HEENT HEENT: Moist mucous membranes - Neck Neck: Supple, no meningeal sign - Derm Derm: Warm and dry - Neuro Neuro: Alert and oriented X 3 PD ED PE EXPANDED - Extremities SANDRA UE/Hands Visual: 1 - laceration (1cm, superficial. NVI. no tendon injury.) Results - Vitals Vitals: Vital Signs - 24 hr 01/20/20 09:23 Temperature 36.3 C L Heart Rate 68 Respiratory 16 Rate Blood Pressure 132/74 H O2 Saturation 99 Oxygen O2 Source Room air Procedures - Laceration (location) L 3rd digit Length in cm: 1 Wound type: Linear, Superficial, Clean Neurovascular status: Sensory intact, Motor intact, Vascular intact Tendon involvement: Tendon intact Wound Preparation: Irrigated copiously NS, Wound explored, To the base Skin layer closure: Dermabond Other: No complications, Tetanus booster given (tdap) Complexity: Simple PD MEDICAL DECISION MAKING - ED course Complexity details: considered differential, d/w patient ED course: Patient with a laceration to the left third digit. This was repaired using Dermabond. Will place in a finger splint to minimize movement. Patient decli maris sutures. Neurovascularly intact. No signs of infection. Warnings of infection and instructions on wound care given at bedside. Also counseled on how to minimize scarring. Tdap given patient counseled regarding signs and symptoms for which I believe and urgent re-evaluation would be necessary. Patient with good understanding of and agreement to plan and is comfortable going home at this time This document was made in part using voice recognition software. While efforts are made to proofread this document, sound alike and grammatical errors may occur. Departure - Departure Disposition: 01 Home, Self Care Clinical Impression: Finger laceration Qualifiers: Encounter type: initial encounter Finger: middle finger Damage to nail status: without damage Foreign body presence: without foreign body Laterality: left Qualified Code(s): S61.213A - Laceration without foreign body of left middle finger without damage to nail, initial encounter Condition: Good Instructions: ED Laceration Hand Follow-Up: HALEY SOTO MD [Primary Care Provider] - As Needed Comments: Return if you notice redness, swelling or drainage from the wound. You were g iven a tetanus shot today. You can remove the splint in 1 to 2 days. Do not apply ointment as this will dissolve the glue.
[2020-01-20 10:11] VITALS: BP 135/93
== END 2020-01-20 10:11 | disposition home or self-care (01) ==
LOC: ED 09:18
DX: S61.213A Laceration without foreign body of left middle finger without damage to nail, initial encounter (principal); W26.8XXA Contact with other sharp object(s), not elsewhere classified, initial encounter; Y92.009 Unspecified place in unspecified non-institutional (private) residence as the place of occurrence of the external cause; Z23 Encounter for immunization
CPT/HCPCS: 12001; 90471; 99282; 99283

== ENCOUNTER 2020-02-07 20:05 | Outpatient (CLI) | payer MEDICAID ==
[2020-02-07 20:28] LABS: HGB - HEMOGLOBIN 14.7 g/dL (12.0-16.0); WHITE BLOOD COUNT 7.5 x10^3/uL (4.8-10.8)
[2020-02-07 20:42] LABS: CREATININE 0.7 mg/dL (0.4-1.0)
[2020-02-07 21:06] LABS: HCG,QUALITATIVE BLOOD NEGATIVE
== END 2020-02-07 20:06 | disposition home or self-care (01) ==
LOC: LAB 20:05
PROVIDERS: ATTEND Student in an Organized Health Care Education/Training Program
DX: L40.3 Pustulosis palmaris et plantaris (principal); Z79.899 Other long term (current) drug therapy
CPT/HCPCS: 82565; 84450; 84460; 84520; 84703; 85014; 85018; 85049; 87522

== ENCOUNTER 2020-04-26 08:00 | Outpatient (CLI) | payer MEDICAID ==
[2020-04-26 10:23] LABS: BASOPHILS % (AUTO) 0.3 %; EOSINOPHILS # (AUTO) 0.1 10^3/uL (0.0-0.7); EOSINOPHILS % (AUTO) 2.1 %; LYMPHOCYTES # (AUTO) 1.5 10^3/uL (1.5-3.5); LYMPHOCYTES % (AUTO) 24.2 %; MEAN CORPUSCULAR HEMOGLOBIN 32.1 pg (27.0-31.0); MEAN CORPUSCULAR VOLUME 94.4 fL (81.0-99.0); MEAN PLATELET VOLUME 10.3 fL (7.9-10.8); MONOCYTES # (AUTO) 0.4 10^3/uL (0.0-1.0); MONOCYTES % (AUTO) 6.2 %; NEUTROPHILS # (AUTO) 4.2 10^3/uL (1.5-6.6); NEUTROPHILS % (AUTO) 66.9 %; PLT - PLATELET COUNT 203 10^3/uL (130-450); RED BLOOD COUNT 4.99 10^6/uL (4.20-5.40); RED CELL DISTRIBUTION WIDTH 13.3 % (12.0-15.0); WHITE BLOOD COUNT 6.3 x10^3/uL (4.8-10.8)
[2020-04-26 10:45] LABS: ALBUMIN 4.8 g/dL (3.2-5.5); ALBUMIN/GLOBULIN RATIO 1.5 (1.0-2.2); BILIRUBIN,TOTAL 1.6 mg/dL (0.2-1.0); CALCIUM 9.8 mg/dL (8.5-10.3); CREATININE 0.7 mg/dL (0.4-1.0)
== END 2020-04-26 23:59 | disposition home or self-care (01) ==
LOC: LAB 08:00
PROVIDERS: ATTEND Registered Nurse
DX: L40.3 Pustulosis palmaris et plantaris (principal); Z79.899 Other long term (current) drug therapy
CPT/HCPCS: 36415; 80053; 81599; 85025; 85651; 86140; 86480; 86704; 86706; 86708; 86803; 87340

== ENCOUNTER 2020-04-30 13:06 | Emergency (ER) | payer MEDICAID ==
[2020-04-30] MEDS ORDERED: CHERRY SYRUP 10 ML UDC PO ONE (13:29)
[2020-04-30] MEDS ORDERED: DEXAMETHASONE 10 MG/ML VIAL PO STA (13:29)
--- NOTE | 2020-04-30 13:32 | ED Physician Documentation ---
History of Present Illness - Stated complaint Stated Complaint: ARTHRITIS FLARE UP - Chief complaint Chief Complaint: General - Additonal information Additional information: 45-year-old female presents the emergency department for generalized body and joint pain. She reports a history of psoriasis but with history of recurrent joint pain there is suspicion that she may have psoriatic arthritis. She has referral to a wrapper stitcher and that appointment is scheduled for June 10 of this year. She takes methotrexate once a week. Over the last 24 hours she has been using Tylenol and ibuprofen without relief. There is no joint swelling. There is no fevers. No recent falls or trauma. Patient arrives tearful but has a normal gait. She denies any recent travel, cough, congestion, nausea pain dysuria or abdominal pain. Review of Systems Constitutional: reports: Myalgias. denies: Fever, Chills Eyes: reports: Reviewed and negative Ears: reports: Reviewed and negative Nose: reports: Reviewed and negative Throat: reports: Reviewed and negative Cardiac: reports: Reviewed and negative Respiratory: reports: Reviewed and negative GI: denies: Abdominal Pain, Nausea, Vomiting, Hematemesis : denies: Frequency, Hesitancy Skin: reports: Rash (psoriasis) Musculoskeletal: reports: Joint pain. 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: Hysterectomy - Allergies Allergies/Adverse Reactions: Allergies Allergy/AdvReac Type Severity Reaction Status Date / Time Penicillins Allergy Rash Verified 04/30/20 13:19 - Social History Does the pt smoke?: No Smoking Status: Never smoker Does the pt drink ETOH?: No Does the pt have substance abuse?: Yes - Immunizations Immunizations are current?: Yes - POLST Patient has POLST: No PD ED PE NORMAL - General General: Alert and oriented X 3, Well developed/nourished, Other (tearful, crying) - HEENT HEENT: PERRL, Ears normal, Moist mucous membranes - Neck Neck: Supple, no meningeal sign, No adenopathy - Cardiac Cardiac: RRR, No murmur - Respiratory Respiratory: No respiratory distress, Clear bilaterally - Abdomen Abdomen: Normal bowel sounds, Soft, Non tender - Back Back: No CVA TTP - Derm Derm: Normal color, Warm and dry, No rash - Extremities Extremities: No deformity, Normal ROM s pain, No edema, Other (Patient reports generalized joint pain in hands and feet and knees. No swelling no erythema. Normal gait. Normal grasp and fine motor movement.) - Neuro Neuro: Alert and oriented X 3, puddler pile driving 2-12 intact, No motor deficit Eye Opening: Spontaneous Motor: Obeys Commands Verbal: Oriented GCS Score: 15 Results - Vitals Vitals: Vital Signs - 24 hr 04/30/20 13:19 Temperature 37.3 C Heart Rate 98 Respiratory 18 Rate Blood Pressure 124/78 O2 Saturation 98 Oxygen O2 Source Room air PD MEDICAL DECISION MAKING - ED course Complexity details: reviewed results, re-evaluated patient, considered differential, d/w patient ED course: 45-year-old female presents to the emergency department with 24 hours of generalized joint and body pain. No fevers. She does have a history of psoriasis and recently received a referral to a wrapper stitcher for evaluation of possible psoriatic arthritis. She is taking ibuprofen and Tylenol without relief of pain at home. Here in the emergency department she will be given 10 mg of Decadron but no further medication or narcotic on discharge. I do recommend that she continue the Motrin and Tylenol as she has been using at home. She did have routine screening labs completed 4 days ago and of note normal CRP and white count. Vital signs here are normal without fever. Departure - Departure Disposition: Home, Self Care Clinical Impression: Joint pain Qualifiers: Joint pain location: unspecified Qualified Code(s): M25.50 - Pain in unspecifi ed joint Condition: Stable Record reviewed to determine appropriate education?: Yes Follow-Up: HALEY SOTO MD [Primary Care Provider] - Comments: Lisa please continue to follow-up with a wrapper stitcher that you are scheduled with on June 10. Today in the emergency department we gave you a one-time dose of [place] a pain medication. We also gave you a one-time dose of an oral steroid called Decadron. This typically lasts to help control pain and swelling for 3 to 4 days. The labs that you had obtained on the were all essentially normal. If at any point you have fevers, cannot ambulate, have joint swelling or redness please return to the ER for a second look.
[2020-04-30] MEDS ORDERED: HYDROcod/ACETAM 5/325 MG TABLET PO STA (13:33)
[2020-04-30 14:02] VITALS: BP 126/93
== END 2020-04-30 14:09 | disposition home or self-care (01) ==
LOC: ED 13:06
DX: M25.542 Pain in joints of left hand (principal); M25.541 Pain in joints of right hand; M25.572 Pain in left ankle and joints of left foot; M25.571 Pain in right ankle and joints of right foot; M25.562 Pain in left knee; M25.561 Pain in right knee; L40.9 Psoriasis, unspecified; M19.90 Unspecified osteoarthritis, unspecified site
CPT/HCPCS: 99282; 99284; A9270

== ENCOUNTER 2020-07-23 14:38 | Emergency (ER) | payer MEDICAID ==
--- OUTSIDE RECORDS SUMMARY | 2020-07-23 14:41 | EXTERNAL MEDICAL SUMMARY RPT | Continuity of Care Document ---
:1975 Demographics Phone Unavailable Preferred Language Unknown Marital Status Unknown Temple Affiliation Unknown Race Unknown Ethnic Group Unknown Author Organization [facility] Address [address] [id number] Phone Social History date description facility [phone]
[2020-07-23 14:50] VITALS: BP 139/94
--- OUTSIDE RECORDS SUMMARY | 2020-07-23 14:53 | EXTERNAL MEDICAL SUMMARY RPT | Continuity of Care Document ---
:1975 Demographics Phone Unavailable Preferred Language Unknown Marital Status Unknown Latter Day Affiliation Unknown Race Unknown Ethnic Group Unknown Author Organization [facility] Address [address] [place] [address] Phone Social History date description facility [phone]
--- NOTE | 2020-07-23 14:55 | ED Physician Documentation ---
PD HPI LOWER EXT INJURY - Stated complaint Stated Complaint: R FOOT INJ - Chief complaint Chief Complaint: Ext Problem - History obtained from History obtained from: Patient - History of Present Illness PD HPI LOW EXT INJURY LOCATION: Right, Foot Type of injury: Blunt / blow (Accidentally kicked a chair 3 nights ago. 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: None : None HEENT: None Psych: None Musculoskeletal: Osteoarthritis Derm: Psoriasis - Past Surgical History Past Surgical History: Yes /GUIDE ESCORT: Hysterectomy - Present Medications Home Medications: Ambulatory Orders Medication Instructions Recorded Confirmed Adalimumab [Humira] 40 mg SQ UD 07/23/20 07/23/20 - Allergies Allergies/Adverse Reactions: Allergies Allergy/AdvReac Type Severity Reaction Status Date / Time Penicillins Allergy Rash Verified 07/23/20 14:49 - Social History Does the pt smoke?: No Smoking Status: Never smoker Does the pt drink ETOH?: No Does the pt have substance abuse?: Yes - Immunizations Immunizations are current?: Yes - POLST Patient has POLST: No PD ED PE NORMAL - Vitals Vital signs reviewed: Yes - General General: Alert and oriented X 3, No acute distress - Extremities Extremities: Other (Mild TTP R 5th toe and MT. No deformity.) - Neuro Neuro: Alert and oriented X 3, Normal speech Results - Vitals Vitals: Vital Signs - 24 hr 07/23/20 14:43 Temperature 36.4 C L Heart Rate 82 Respiratory 16 Rate Blood Pressure 139/94 H O2 Saturation 98 Oxygen O2 Source Room air - Rads (name of study) 3v R foot Radiology: EMP read contemporaneously (NAD) Departure - Departure Disposition: 01 Home, Self Care Clinical Impression: Toe sprain Qualifiers: Encounter type: initial encounter Qualified Code(s): S93.509A - Unspecified sprain of unspecified toe(s), initial encounter Condition: Good Record reviewed to determine appropriate education?: Yes Instructions: ED Sprain Foot Comments: Tylenol or ibuprofen as needed for pain, recheck with your doctor in 1 to 2 weeks if not improving. Discharge Date/Time: 07/23/20 15:09
--- NOTE | 2020-07-23 15:21 | XRAY Report ---
PROCEDURE: Foot 3 View RT INDICATIONS: injury TECHNIQUE: 3 views of the foot were acquired. COMPARISON: None FINDINGS: Bones: No fractures or dislocations. No suspicious bony lesions. Incidental note is made of a bipa rtite medial sesamoid bone. Incidental note is made of an accessory ossicle, an os peroneum. Soft tissues: No tibiotalar joint effusion. Achilles tendon appears normal. IMPRESSION: No displaced fractures are seen on this plain study. In this patient with a given history of trauma, please correlate with focal tenderness. If clinically appropriate, please consider a short-term follow-up plain films series versus a dedicated CT study. Reviewed by: Tahir Stephens MD on 07/23/2020 2:20 PM AKCHRISS Approved by: Tahir Stephens MD on 07/23/2020 2:20 PM AKCHRISS Station ID: [id number]
== END 2020-07-23 15:09 | disposition home or self-care (01) ==
LOC: ED 14:38
DX: S93.601A Unspecified sprain of right foot, initial encounter (principal); W22.09XA Striking against other stationary object, initial encounter
CPT/HCPCS: 99282; 99283

== ENCOUNTER 2020-07-27 07:49 | Emergency (ER) | payer MEDICAID ==
--- OUTSIDE RECORDS SUMMARY | 2020-07-27 07:52 | EXTERNAL MEDICAL SUMMARY RPT | Continuity of Care Document ---
:1975 Demographics Phone Unavailable Preferred Language Unknown Marital Status Unknown Anabaptist Affiliation Unknown Race Unknown Ethnic Group Unknown Author Organization [facility] Address [address] [phone] Phone Social History date description facility [phone]
--- OUTSIDE RECORDS SUMMARY | 2020-07-27 08:02 | EXTERNAL MEDICAL SUMMARY RPT | Continuity of Care Document ---
:1975 Demographics Phone Unavailable Preferred Language Unknown Marital Status Unknown Orthodoxy Affiliation Unknown Race Unknown Ethnic Group Unknown Author Organization [facility] Address [address] [place] [address] Phone Social History date description facility [phone]
--- NOTE | 2020-07-27 08:15 | ED Physician Documentation ---
PD HPI LOWER EXT INJURY - Stated complaint Stated Complaint: RT FOOT PX - Chief complaint Chief Complaint: Ext Problem - History obtained from History obtained from: Patient - History of Present Illness PD HPI LOW EXT INJURY LOCATION: Right, Foot Type of injury: Twist (had struck foot on curb or such a week ago with pain. Seen in ER with normal xray. Given post op shoe. Pain with walking and she says felt a pop and more pain in foot last evening.). No: Fall Timing - onset: How many weeks ago (1) Timing - duration: Weeks (1) Timing - details: Abrupt onset, Still present Worsened by: Moving, Palpating Associated symptoms: Swelling (mild dorsum of foot.). No: Weakness, Numbness, Discolored (no redness) Similar symptoms before: Has not had sx before Recently seen: Emergency Dept Review of Systems Constitutional: denies: Fever, Chills Nose: denies: Rhinorrhea / runny nose, Congestion Throat: denies: Sore throat Respiratory: denies: Cough Skin: reports: Rash (history of psoriasis that has been worse the past week or two. Mostly hands and elbows.). 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 - Present Medications Home Medications: Ambulatory Orders Medication Instructions Recorded Confirmed Adalimumab [Humira] 40 mg SQ UD 07/23/20 07/23/20 HYDROcod/ACETAM 5/325 [[place] 5/325] 1 ea PO Q6H PRN #12 tablet 07/27/20 dexAMETHasone [Decadron] 4 mg PO DAILY #5 tablet 07/27/20 - Allergies Allergies/Adverse Reactions: Allergies Allergy/AdvReac Type Severity Reaction Status Date / Time Penicillins Allergy Rash Verified 07/27/20 08:13 - Social History Does the pt smoke?: No Smoking Status: Never smoker Does the pt drink ETOH?: No Does the pt have substance abuse?: Yes - Immunizations Immunizations are current?: Yes - POLST Patient has POLST: No PD ED PE NORMAL - Vitals Vital signs reviewed: Yes - General General: Alert and oriented X 3, No acute distress, Well developed/nourished - Derm Derm: Normal color, Warm and dry, Other (scaling rash on hands/palms and upper forearms c/w psoriasis. ) - Extremities Extremities: Other (right plaster tender without deformity dorsum laterally and near base 4th/5th toes. No redness nor warmth. No skin sores. ) - Neuro Neuro: Alert and oriented X 3, No motor deficit, No sensory deficit Results - Vitals Vitals: Vital Signs - 24 hr 07/27/20 07/27/20 08:04 09:52 Temperature 37 C 36.6 C Heart Rate 83 67 Respiratory 16 16 Rate Blood Pressure 118/89 H 138/103 H O2 Saturation 97 97 Oxygen O2 Source Room air PD MEDICAL DECISION MAKING - ED course Complexity details: reviewed results (no fracture/dislocation), considered differential (foot pain with recent xray but felt pop and more pain, so xrayed again to eval for stress fracture/etc. Still normal. Presume strain with loose ligament or such in midfoot. no history of gout. consider some psoriatic arthritis possible. ), d/w patient Departure - Departure Disposition: Home, Self Care Clinical Impression: Foot sprain Qualifiers: Encounter type: subsequent encounter Laterality: right Qualified Code(s): S93.601D - Unspecified sprain of right foot, subsequent encounter Condition: Stable Record reviewed to determine appropriate education?: Yes Instructions: ED Sprain Foot Follow-Up: Shalom Calderón DPM [Physician No Access] - Noman Ohara MD [Provider Admit Priv/Credential] - Prescriptions: dexAMETHasone [Decadron] 4 mg PO DAILY #5 tablet HYDROcod/ACETAM 5/325 [[place] 5/325] 1 ea PO Q6H PRN #12 tablet PRN Reason: Pain Comments: Continue the firm soled shoe. Off work today and then you will have a few days off. Limited walking and activity for 3 to 5 days. Continue anti-inflammatories with either ibuprofen 2- 3 times a day or the Decadron steroid. Add Tylenol 500 mg 4 times daily regularly and to that add hydrocodone if needed for worse pain every 4-6 hours. Follow-up with orthopedics or follow up specialist if not improved over the next week. Forms: Activity restrictions Discharge Date/Time: 07/27/20 09:53
[2020-07-27] MEDS ORDERED: CHERRY SYRUP 10 ML UDC PO ONE (08:29)
[2020-07-27] MEDS ORDERED: HYDROcod/ACETAM 5/325 MG TABLET PO STA (08:29)
[2020-07-27] MEDS ORDERED: DEXAMETHASONE 10 MG/ML VIAL PO STA (08:29)
--- NOTE | 2020-07-27 08:52 | XRAY Report ---
PROCEDURE: Foot 3 View RT INDICATIONS: recent injury, new pop and pain since TECHNIQUE: 3 views of the foot were acquired. COMPARISON: None FINDINGS: Incidental os peroneum. Moderate first MTP joint degeneration. Chronic calcification or ossicle proje cts adjacent to the dorsal head of the talus.Scattered degenerative spurring and subchondral sclerosi s. Soft tissues: No tibiotalar joint effusion. Achilles tendon appears normal. IMPRESSION: No definite fracture however follow-up radiographs in 10 days could be performed if the patient's sy mptoms do not improve to exclude occult fracture/assess for healing sclerosis. Or MRI could be perfor med as clinically necessary. Reviewed by: Tyson Watkins MD on 07/27/2020 8:51 AM PDT Approved by: Tyson Watkins MD on 07/27/2020 8:51 AM PDT Station ID: [id number]
[2020-07-27 09:53] VITALS: BP 138/103
== END 2020-07-27 09:53 | disposition home or self-care (01) ==
LOC: ED 07:49
DX: S93.601A Unspecified sprain of right foot, initial encounter (principal); X50.1XXA Overexertion from prolonged static or awkward postures, initial encounter
CPT/HCPCS: 73630; 99283; A9270

== ENCOUNTER 2020-12-21 06:58 | Emergency (ER) | payer MEDICAID ==
[2020-12-21] MEDS ORDERED: diphenhydrAMINE INJ 50 MG/ML VIAL IVP STA (07:17)
[2020-12-21] MEDS ORDERED: METOCLOPRAMIDE 10 MG/2 ML VIAL IVP STA (07:17)
[2020-12-21] MEDS ORDERED: KETOROLAC 15 MG/ML VIAL IVP STA (07:17)
--- NOTE | 2020-12-21 07:18 | ED Physician Documentation ---
PD HPI HEADACHE - Stated complaint Stated Complaint: HEAD PX - Chief complaint Chief Complaint: Neuro - History obtained from History obtained from: Patient - History of Present Illness Worst headache ever?: No: Worst headache ever? - Additional information Additional information: 45-year-old woman with history of migraines and cluster headaches presents with her typical migraine starting at 9 AM yesterday with gradual onset over about 3 hours. It was associated with halos and spots in her vision and nausea as well as profound light and sound sensitivity and was vomiting last night. She tried Goody's powder without relief. No associated fevers or neck stiffness. 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 - Present Medications Home Medications: Ambulatory Orders Medication Instructions Recorded Confirmed Adalimumab [Humira] 40 mg SQ UD 07/23/20 07/23/20 HYDROcod/ACETAM 5/325 [[place] 5/325] 1 ea PO Q6H PRN #12 tablet 07/27/20 dexAMETHasone [Decadron] 4 mg PO DAILY #5 tablet 07/27/20 SUMAtriptan [Imitrex] 25 mg PO BID PRN #10 tablet 12/21/20 - Allergies Allergies/Adverse Reactions: Allergies Allergy/AdvReac Type Severity Reaction Status Date / Time Penicillins Allergy Rash Verified 12/21/20 07:04 - Social History Does the pt smoke?: No Smoking Status: Never smoker Does the pt drink ETOH?: No Does the pt have substance abuse?: Yes - Immunizations Immunizations are current?: Yes - POLST Patient has POLST: No PD ED PE NORMAL - Vitals Vital signs reviewed: Yes - General General: Alert and oriented X 3, Other (Well-appearing but photophobic and uncomfortable) - HEENT HEENT: PERRL, EOMI - Neck Neck: Supple, no meningeal sign, No bony TTP - Neuro Neuro: Alert and oriented X 3, rn homecare 2-12 intact, No motor deficit, No sensory deficit, Normal speech Results - Vitals Vitals: Vital Signs - 24 hr 12/21/20 07:00 Temperature 36.8 C Heart Rate 82 Respiratory 15 Rate Blood Pressure 137/81 H O2 Saturation 100 Oxygen O2 Source Room air PD MEDICAL DECISION MAKING - ED course ED course: The headache is gradual in onset and similar to prior headaches. As such I doubt subarachnoid hemorrhage. There are no infectious symptoms such as fever or stiff neck to make me suspect meningitis. No carbon monoxide exposure by history. Significant improvement in pain after administration of Toradol, Reglan, Benadryl and still having some pain though so Haldol with almost complete relief. Departure - Departure Disposition: 01 Home, Self Care Clinical Impression: Migraine Qualifiers: Migraine type: with aura Status migrainosus presence: with status migrainosus Intractability: not intractable Qualified Code(s): G43.101 - Migraine with aura, not intractable, with status migrainosus Condition: Good Record reviewed to determine appropriate education?: Yes Instructions: ED Headache Migraine, Imitrex Prescriptions: SUMAtriptan [Imitrex] 25 mg PO BID PRN #10 tablet PRN Reason: Headache Comments: Call your doctor to arrange a follow-up appointment, make the next available appointment. In the interim, return anytime if worse or if new symptoms develop.
[2020-12-21] MEDS ORDERED: HALOPERIDOL 5 MG/ML VIAL IVP ONE (08:04)
[2020-12-21 09:15] VITALS: BP 124/83
== END 2020-12-21 09:15 | disposition home or self-care (01) ==
LOC: ED 06:58
DX: G43.101 Migraine with aura, not intractable, with status migrainosus (principal)
CPT/HCPCS: 96374; 96375; 99283; J1200; J2765

== ENCOUNTER 2021-01-17 13:53 | Emergency (ER) | payer MEDICAID | END 2021-01-17 14:01 | disposition left against medical advice (07) | LOC: ED 13:53 | DX: Z53.21 Procedure and treatment not carried out due to patient leaving prior to being seen by health care provider (principal) ==

== ENCOUNTER 2021-01-18 15:47 | Outpatient (CLI) | payer MEDICAID | END 2021-01-18 15:48 | disposition home or self-care (01) | LOC: COV 15:47 | PROVIDERS: ATTEND Family Medicine | DX: R05.9 Cough, unspecified (principal); M79.10 Myalgia, unspecified site; R51.9 Headache, unspecified; R43.8 Other disturbances of smell and taste; Z20.822 Contact with and (suspected) exposure to COVID-19 ==

== ENCOUNTER 2021-01-22 12:02 | Emergency (ER) | payer MEDICAID ==
[2021-01-22 12:35] VITALS: BP 137/86
--- NOTE | 2021-01-22 13:46 | ED Physician Documentation ---
PD HPI URI - Stated complaint Stated Complaint: NECK/BACK PX - Chief complaint Chief Complaint: Back Pain - History obtained from History obtained from: Patient - Additional information Additional information: 46-year-old woman who is on Humira for psoriasis presents with a week's worth of illness with fever, productive cough, and back and neck pain on the right side. She is mildly short of breath. She tested negative for Covid. Her children are also sick with a similar illness. 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 - Present Medications Home Medications: Ambulatory Orders Medication Instructions Recorded Confirmed Adalimumab [Humira] 40 mg SQ UD 07/23/20 07/23/20 HYDROcod/ACETAM 5/325 [[place] 5/325] 1 ea PO Q6H PRN #12 tablet 07/27/20 dexAMETHasone [Decadron] 4 mg PO DAILY #5 tablet 07/27/20 SUMAtriptan [Imitrex] 25 mg PO BID PRN #10 tablet 12/21/20 Azithromycin [Zithromax] 1 tab PO DAILY #6 tablet 01/22/21 HYDROcod/ACETAM 5/325 [[place] 5/325] 1 - 2 tab PO Q6H PRN #15 tablet 01/22/21 - Allergies Allergies/Adverse Reactions: Allergies Allergy/AdvReac Type Severity Reaction Status Date / Time Penicillins Allergy Rash Verified 01/22/21 12:15 - Social History Does the pt smoke?: No Smoking Status: Never smoker Does the pt drink ETOH?: No Does the pt have substance abuse?: Yes - Immunizations Immunizations are current?: Yes - POLST Patient has POLST: No PD ED PE NORMAL - Vitals Vital signs reviewed: Yes - General General: Alert and oriented X 3, No acute distress - Neck Neck: No bony TTP, Other (Sternocleidomastoid tender on the right without midline bony tenderness.) - Cardiac Cardiac: RRR, No murmur - Respiratory Respiratory: No respiratory distress, Other (Mild wheezes left base, nonlabored, otherwise clear) - Neuro Neuro: Alert and oriented X 3, Normal speech Results - Vitals Vitals: Vital Signs - 24 hr 01/22/21 12:12 Temperature 36.8 C Heart Rate 89 Respiratory 16 Rate Blood Pressure 137/86 H O2 Saturation 95 Oxygen O2 Source Room air PD MEDICAL DECISION MAKING - ED course ED course: 46-year-old woman with URI with productive cough and fevers. Given the time course and underlying immune compromise due to Humira will err on the side of giving antibiotics. I am prescribing a short course of short-acting opioid pain medication for this patient. 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 I have discussed that the opioids are for short term therapy only, and will not be refilled from the ED. Departure - Departure Disposition: Home, Self Care Clinical Impression: Trapezius muscle spasm, Bronchitis, Adalimumab (Humira) long-term use Condition: Good Record reviewed to determine appropriate education?: Yes Instructions: ED Upper Resp Infec Abx Tx Prescriptions: HYDROcod/ACETAM 5/325 [[place] 5/325] 1 - 2 tab PO Q6H PRN #15 tablet PRN Reason: Pain Azithromycin [Zithromax] 1 tab PO DAILY #6 tablet Comments: Prescription sent electronically to [facility] pharmacy at the corner of [address] [address] and [facility] in [place]. Call your doctor to arrange a follow-up appointment, make the next available appointment. In the interim, return anytime if worse or if new symptoms develop. I am prescribing a short course of narcotic pain medication for you. These are potentially dangerous and addictive medications that should be used carefully. These medications may constipate you. Take an nbbe-bez-bjsrpoz stool softener (docusate) twice daily with plenty of water while taking these medications. If you go 24 hours without a bowel movement, take dshs-eic-ltrdkyl miralax, per package instructions. Do not drink or drive while taking these medications. If you received narcotic or sedating medications while in the emergency department, do not drive for 24 hours. Store this medication in a safe, secure place and out of reach of children. It is a violation of federal law to give or sell this medication to another person or to use in a manner other than prescribed. The ED will not refill narcotic prescriptions, including prescriptions lost or stolen. To dispose of unwanted medications: 1. [facility] at [address] in [place] has a medication drop box. They accept prescription medications (in pill form) Friday through Friday 9:00 a.m. to 5:00 p.m. 2. The [facility] accepts prescription medications (in pill form only) for disposal year round. Call for more information. 3. Contact the [facility] for the next [facility] sponsored prescription drug collection event. , [phone], or [phone]; Note that many narcotic pain relievers also contain Tylenol/acetaminophen. Please ensure that your total dose of acetaminophen from all sources does not exceed 3 g (3000 mg) per day. Forms: Activity restrictions
== END 2021-01-22 14:18 | disposition home or self-care (01) ==
LOC: ED 12:02
DX: J40 Bronchitis, not specified as acute or chronic (principal); M62.830 Muscle spasm of back; Z79.811 Long term (current) use of aromatase inhibitors
CPT/HCPCS: 99282; 99283

== ENCOUNTER 2021-01-30 20:09 | Emergency (ER) | payer OTHER, MEDICAID ==
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
[2021-01-30] MEDS ORDERED: CYCLOBENZAPRINE 10 MG TABLET PO STA (21:11)
[2021-01-30] MEDS ORDERED: HYDROmorphone 1 MG/ML CARPUJECT IM STA (21:11)
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
[2021-01-30] MEDS ORDERED: ONDANSETRON ODT 4 MG TABLET TL STA (21:57)
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
[2021-01-30] MEDS ORDERED: PROMETHAZINE 25 MG/1 ML VIAL IM STA (22:28)
[2021-01-30] MEDS ORDERED: HYDROcod/ACET 5/325 Prepack 4 PO STA (22:52)
[2021-01-30] MEDS ORDERED: CYCLOBENZAPRINE 10 MG Prepack 2 PO PRN (22:52)
[2021-01-30 23:48] VITALS: BP 144/87
--- NOTE | 2021-01-31 16:54 | ED Physician Documentation ---
ED Addendum - Addendum Addendum: 01/31/21 16:53 The [facility] pharmacy did not have Vicodin in stock. The prescription was canceled and sent to [facility] in [place].
== END 2021-01-30 23:35 | disposition home or self-care (01) ==
LOC: ED 20:09
DX: S16.1XXA Strain of muscle, fascia and tendon at neck level, initial encounter (principal); S39.012A Strain of muscle, fascia and tendon of lower back, initial encounter; V43.52XA Car driver injured in collision with other type car in traffic accident, initial encounter; Y92.410 Unspecified street and highway as the place of occurrence of the external cause; M47.812 Spondylosis without myelopathy or radiculopathy, cervical region
CPT/HCPCS: 71046; 72125; 96372; 99284; A9270; J1170; Q0162

== ENCOUNTER 2021-04-24 08:03 | Emergency (ER) | payer MEDICAID ==
--- NOTE | 2021-04-24 08:17 | ED Physician Documentation ---
PD HPI UPPER EXT INJURY - Stated complaint Stated Complaint: WEAKNESS BOTH HANDS - Chief complaint Chief Complaint: Ext Problem - History obtained from History obtained from: Patient - History of Present Illness Location: Right, Left, Shoulder, Arm Where injury occurred: Home Timing - onset: Today, Last night Timing - duration: Days (1/2) Timing - details: Gradual onset Improved by: Rest Worsened by: Moving (lifting both arms causes pain in shoulders and scapular areas.) Associated symptoms: Weakness. No: Numbness, Swelling Contributing factors: Other (new medication of Enbril the past 2 weeks.). 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 Pain with shoulder lifting both sides.). 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 - Present Medications Home Medications: Ambulatory Orders Medication Instructions Recorded Confirmed SUMAtriptan [Imitrex] 25 mg PO BID PRN #10 tablet 12/21/20 04/24/21 Cyclobenzaprine [Flexeril] 10 mg PO TID PRN #20 tablet 01/30/21 04/24/21 Etanercept [Enbrel] 50 mg INJ 04/24/21 HYDROcod/ACETAM 5/325 [[place] 5/325] 1 ea PO Q6H PRN #18 tablet 04/24/21 dexAMETHasone [Decadron] 4 mg PO DAILY #5 tablet 04/24/21 - Allergies Allergies/Adverse Reactions: Allergies Allergy/AdvReac Type Severity Reaction Status Date / Time Penicillins Allergy Rash Verified 04/24/21 08:14 - Social History Does the pt smoke?: No Smoking Status: Never smoker Does the pt drink ETOH?: No Does the pt have substance abuse?: Yes - Immunizations Immunizations are current?: Yes - POLST Patient has POLST: No PD ED PE NORMAL - Vitals Vital signs reviewed: Yes - General General: Alert and oriented X 3, Well developed/nourished, Other (appears uncomfortable with shoulder moving and lifting. ) - HEENT HEENT: Pharynx benign - Neck Neck: Supple, no meningeal sign, No bony TTP - Cardiac Cardiac: RRR, No murmur - Respiratory Respiratory: Clear bilaterally - Derm Derm: Normal color, Warm and dry - Extremities Extremities: Other (tender in deltoid and suprascapular areas both sides. No edema in hands/arms. Normal pulses and cap refill. ) - Neuro Neuro: Alert and oriented X 3, No sensory deficit, Normal speech Results - Vitals Vitals: Oxygen O2 Source Room air - Labs Labs: Laboratory Tests 04/24/21 04/24/21 04/24/21 09:07 09:07 09:07 WBC 6.3 RBC 4.50 Hgb 13.9 Hct 40.6 MCV 90.2 MCH 30.9 MCHC 34.2 RDW 12.5 Plt Count 173 MPV 10.2 Neut # (Auto) 3.5 Lymph # (Auto) 1.8 Rock # (Auto) 0.7 Eos # (Auto) 0.3 Baso # (Auto) 0.0 Absolute Nucleated RBC 0.00 Nucleated RBC % 0.0 ESR 2 Sodium 138 Potassium 4.5 Chloride 106 Carbon Dioxide 25 Anion Gap 7.0 BUN 22 H Creatinine 0.7 Estimated GFR (MDRD) 90 Glucose 94 Calcium 8.8 Magnesium 2.3 Total Bilirubin 1.0 AST 15 ALT 16 Alkaline Phosphatase 60 Total Creatine Kinase 38 Total Protein 6.9 Albumin 3.9 Globulin 3.0 Albumin/Globulin Ratio 1.3 Lipase 22 PD MEDICAL DECISION MAKING - ED course Complexity details: reviewed results (labs good. ), re-evaluated patient (improved strength in arms for lifting after pain meds, suggesting more pain component and not neurologic weakness. ), considered differential (consider side effect of new med which does have neurologic and lupus like symptoms as listed side effects. Also consider FM type process as she does have autoimmune disease (psoriatic arthritis). ), d/w patient Departure - Departure Disposition: 01 Home, Self Care Clinical Impression: Shoulder pain, bilateral Qualifiers: Chronicity: acute Qualified Code(s): M25.511 - Pain in right shoulder Condition: Stable Record reviewed to determine appropriate education?: Yes Follow-Up: Malina Johnson ARNP [Primary Care Provider] - Prescriptions: dexAMETHasone [Decadron] 4 mg PO DAILY #5 tablet HYDROcod/ACETAM 5/325 [[place] 5/325] 1 ea PO Q6H PRN #18 tablet PRN Reason: Pain Comments: Your assignment officer office and asked them if they think the shoulder pains and arm weakness would relate to the Enbrel dosing. It should have time to connect with them since your next dose would not be due until . Meanwhile your basic blood tests here of blood count, electrolytes, sed rate are normal. I did do an SANTOS test which will result in the next couple of days as a listed side effect of the Enbrel can be a lupus-like reaction and the screens for that. Use Decadron steroid daily for the next 5 days for presumed muscle inflammation. Add Tylenol or hydrocodone if needed for pains. Follow with your assignment officer regarding further treatment options and any potential modification of the Enbrel. Transmitted the prescriptions to [facility] pharmacy in [place]. I am prescribing a short course of narcotic pain medication for you. These are potentially dangerous and addictive medications that should be used carefully. These medications may constipate you. Take an kydf-nly-ocfqcir stool softener such as docusate twice daily with plenty of water while taking these medications. If you go 24 hours without a bowel movement, take yqhv-jlk-jvspuie MiraLAX, per package instructions. Do not drink or drive while taking these medications. If you received narcotic or sedating medications while in the emergency depa rtment do not drive for 24 hours. Store this medication in a safe, secure place and out of reach of children. It is a violation of federal law to give or sell this medication to another person or to use in a manner other than prescribed. The ED will not refill narcotic prescriptions, including prescriptions lost or stolen. You can dispose of unwanted medications at the [facility]'s office or at several pharmacies such as [facility]. Discharge Date/Time: 04/24/21 10:44
[2021-04-24] MEDS ORDERED: KETOROLAC 15 MG/ML VIAL IVP STA (08:37)
[2021-04-24] MEDS ORDERED: HYDROmorphone 1 MG/ML CARPUJECT IVP STA (08:37)
[2021-04-24 09:30] LABS: BASOPHILS % (AUTO) 0.3 %; EOSINOPHILS # (AUTO) 0.3 10^3/uL (0.0-0.7); EOSINOPHILS % (AUTO) 4.6 %; HCT - HEMATOCRIT 40.6 % (37.0-47.0); HGB - HEMOGLOBIN 13.9 g/dL (12.0-16.0); LYMPHOCYTES # (AUTO) 1.8 10^3/uL (1.5-3.5); MEAN CORPUSCULAR HEMOGLOBIN 30.9 pg (27.0-31.0); MEAN CORPUSCULAR HGB CONC 34.2 g/dL (32.0-36.0); MEAN CORPUSCULAR VOLUME 90.2 fL (81.0-99.0); MEAN PLATELET VOLUME 10.2 fL (7.9-10.8); MONOCYTES # (AUTO) 0.7 10^3/uL (0.0-1.0); MONOCYTES % (AUTO) 11.2 %; NEUTROPHILS # (AUTO) 3.5 10^3/uL (1.5-6.6); NEUTROPHILS % (AUTO) 54.4 %; PLT - PLATELET COUNT 173 10^3/uL (130-450); RED CELL DISTRIBUTION WIDTH 12.5 % (12.0-15.0); WHITE BLOOD COUNT 6.3 x10^3/uL (4.8-10.8)
[2021-04-24 09:42] LABS: ALBUMIN 3.9 g/dL (3.2-5.5); ALBUMIN/GLOBULIN RATIO 1.3 (1.0-2.2); CALCIUM 8.8 mg/dL (8.5-10.3); CREATININE 0.7 mg/dL (0.4-1.0); MAGNESIUM 2.3 mg/dL (1.7-2.8); POTASSIUM 4.5 mmol/L (3.5-5.0); TOTAL PROTEIN 6.9 g/dL (6.7-8.2)
[2021-04-24] MEDS ORDERED: DEXAMETHASONE 10 MG/ML VIAL IVP STA (10:13)
[2021-04-24 10:16] VITALS: BP 126/92
[2021-04-27 22:46] LABS: ANA SCREEN POSITIVE (NEGATIVE)
== END 2021-04-24 10:44 | disposition home or self-care (01) ==
LOC: ED 08:03
DX: M25.512 Pain in left shoulder (principal); M25.511 Pain in right shoulder
CPT/HCPCS: 36415; 80053; 82550; 83690; 83735; 85025; 85651; 86038; 96374; 96375; 99282; 99283; J1170

== ENCOUNTER 2021-05-04 19:08 | Emergency (ER) | payer MEDICAID ==
[2021-05-04 19:25] VITALS: BP 136/94
--- NOTE | 2021-05-04 19:49 | ED Physician Documentation ---
PD HPI FOCAL NEURO - Stated complaint Stated Complaint: CAN'T WALK/RT SIDE UNABLE TO MOVE - Chief complaint Chief Complaint: Ext Problem - History obtained from History obtained from: Patient - History of Present Illness Timing - onset: How many days ago (1-2 days of pain and weakness right arm and leg. Has pain with muscle movement. Seen a week ago for similar of both upper arms due to shoulder pains, that improved with pain meds in ER (arm movement better when hurt less) and lessened for several days on steroids. Now pain right shoulder/hip.) Timing - duration: Weeks Timing - details: Gradual onset, Waxing and waning Severity of deficit: Moderate Weakness: Arm, Leg. No: Face, Hand, Foot Numbness: No: Face, Arm, Leg Associated symptoms: Neck pain. No: Headache, Nausea / vomiting, Back pain Contributing factors: negative: Anticoagulated Baseline status: positive: A&OX3, ambulatory, indep Similar symptoms before: No diagnosis (new symptoms for past couple of weeks. Prior history of psoriasis and some arthritis.) Recently seen: Emergency Dept Review of Systems Constitutional: denies: Fever, Chills Nose: denies: Rhinorrhea / runny nose, Congestion Throat: denies: Sore throat Respiratory: denies: Cough Neurologic: reports: Generalized weakness (feeling due to muscle pains and strength loss.). 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 - Present Medications Home Medications: Ambulatory Orders Medication Instructions Recorded Confirmed SUMAtriptan [Imitrex] 25 mg PO BID PRN #10 tablet 12/21/20 05/04/21 Cyclobenzaprine [Flexeril] 10 mg PO TID PRN #20 tablet 01/30/21 04/24/21 Etanercept [Enbrel] 50 mg INJ DAILYWM 04/24/21 Acetaminophen [Acetaminophen Extra 500 mg PO QID PRN #50 tablet 05/04/21 Strength] dexAMETHasone [Decadron] 4 mg PO DAILY 10 Days #10 tablet 05/04/21 tiZANidine [Zanaflex] 4 mg PO Q8H PRN #30 tablet 05/04/21 - Allergies Allergies/Adverse Reactions: Allergies Allergy/AdvReac Type Severity Reaction Status Date / Time Penicillins Allergy Rash Verified 04/24/21 08:14 - Social History Does the pt smoke?: No Smoking Status: Never smoker Does the pt drink ETOH?: No Does the pt have substance abuse?: Yes - Immunizations Immunizations are current?: Yes - POLST Patient has POLST: No PD ED PE NORMAL - Vitals Vital signs reviewed: Yes - General General: Alert and oriented X 3, Well developed/nourished, Other (appears in pain proximal arms and legs, mostly right shoulder/hip/thigh.) - Neck Neck: Supple, no meningeal sign, No bony TTP - Cardiac Cardiac: RRR, No murmur - Respiratory Respiratory: Clear bilaterally - Abdomen Abdomen: Soft, Non tender - Derm Derm: Normal color, Warm and dry, Other (some psoriatic rash on hands currently.) - Neuro Neuro: Alert and oriented X 3, No sensory deficit (sensation to touch and pinprick symmetric; 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 Seems proximal extremity weakness with pain on attempts. ), Normal speech, Other (normal patellar reflexes.) Eye Opening: Spontaneous Motor: Obeys Commands Verbal: Oriented GCS Score: 15 Results - Vitals Vitals: Oxygen O2 Source Room air PD MEDICAL DECISION MAKING - ED course Complexity details: reviewed old records, considered differential (has had roaming areas of muscle pain and weakness since starting Enbrel. Did not take last dose this week. ), d/w patient Departure - Departure Disposition: 01 Home, Self Care Clinical Impression: Myalgia, Weakness of extremity Condition: Stable Record reviewed to determine appropriate education?: Yes Instructions: ED Weakness [facility] Follow-Up: Malina Johnson ARNP [Primary Care Provider] - Prescriptions: Acetaminophen [Acetaminophen Extra Strength] 500 mg PO QID PRN #50 tablet PRN Reason: Pain dexAMETHasone [Decadron] 4 mg PO DAILY 10 Days #10 tablet tiZANidine [Zanaflex] 4 mg PO Q8H PRN #30 tablet PRN Reason: Spasms Comments: Consideration would still be for side effect of the Enbrel with some neurologic symptoms and muscle inflammation. The roaming pattern of the symptoms would not be very suggestive of a fixed structural problem like stroke or tumor. You could consider other inflammatory processes such as MS multiple tubal sclerosis but again seems much more likely peripheral process, meaning of the muscles and nerves outside of the brain. Since you did have some improvement seemingly with the short steroid course last week, we can order that again and go a little longer duration of 10 days. Also add tizanidine muscle relaxant see if that is more helpful than the other one you are using. Add Tylenol 500 mg 4 times a day for pain and then prior pain pills episodically if needed for worse pain. Follow-up with your primary care regarding imaging of the neck as they are arranging, an MRI is most useful for that. Have her consider an MRI of the brain as the same time to evaluate for some of those other processes. Recheck if not improving well over the next few days and return if worse. I transmitted your scripts to [facility] in [place]. Discharge Date/Time: 05/04/21 21:13
[2021-05-04] MEDS ORDERED: KETOROLAC 30 MG/ML VIAL IM STA (20:17)
[2021-05-04] MEDS ORDERED: CHERRY SYRUP 10 ML UDC PO ONE (20:17)
[2021-05-04] MEDS ORDERED: DEXAMETHASONE 10 MG/ML VIAL PO STA (20:17)
[2021-05-04] MEDS ORDERED: HYDROmorphone 1 MG/ML CARPUJECT IM STA (20:17)
[2021-05-04] MEDS ORDERED: tiZANidine 4 MG TABLET PO STA (20:54)
== END 2021-05-04 21:13 | disposition home or self-care (01) ==
LOC: ED 19:08
DX: M79.10 Myalgia, unspecified site (principal); M62.81 Muscle weakness (generalized)
CPT/HCPCS: 96372; 99283; 99284; A9270; J1170

== ENCOUNTER 2021-07-11 08:16 | Outpatient (CLI) | payer MEDICAID ==
--- NOTE | 2021-07-11 10:58 | MRI Report ---
PROCEDURE: Cervical Spine W/O INDICATIONS: TRANSIENT PARALYSIS, NECK PAIN TECHNIQUE: Noncontrast sagittal T1 spin echo and T2 fast spin echo, sagittal STIR, foraminal oblique sagittal T2 fast spin echo, and axial gradient echo or T2 fast spin echo through the cervical spine. COMPARISON: None. FINDINGS: Image quality: Excellent. Alignment and Curvature: Trace degenerative anterolisthesis of C3 on C4. Trace degenerative retrolist hesis of C4 on C5. Trace degenerative retrolisthesis of C5 on C6. Bone Marrow: Marrow demonstrates normal overall signal. Spinal Cord: Visualized spinal cord has normal size and signal. No cerebellar tonsillar herniation. Paraspinous Soft Tissues: No paravertebral masses. Prevertebral soft tissues are normal in thicknes s. C2-C3: Right facet hypertrophy. No canal stenosis. Mild right foraminal stenosis. C3-C4: Disc bulge. Trace anterolisthesis of C3 on C4. AP diameter of the canal is 10.9 mm. Bilatera l facet hypertrophy. Left uncovertebral joint hypertrophy. Mild to moderate bilateral foraminal narro wing. C4-C5: Disc bulge. AP diameter of the canal is 10.8 mm. Bilateral uncovertebral joint hypertrophy, l eft greater than right. Left facet hypertrophy. Moderate to severe left foraminal narrowing with a de gree of left foraminal C5 nerve root impingement. C5-C6: Disc bulge. Mild central canal stenosis. Bilateral uncovertebral joint hypertrophy. Left face t hypertrophy. Mild to moderate right foraminal narrowing. Severe left foraminal narrowing with left foraminal C6 nerve root impingement. C6-C7: Disc bulge. No canal stenosis. Left facet hypertrophy. Mild bilateral foraminal narrowing. C7-T1: No canal stenosis. Bilateral facet hypertrophy. Mild to moderate bilateral foraminal narrowin g. IMPRESSION: 1. Diffuse cervical spondylitic change. Findings include multilevel uncovertebral joint hypertrophy a nd facet arthropathy. 2. There is mild canal stenosis at C5-C6. 3. Multilevel foraminal narrowing as described above, including moderate to severe left foraminal regulo rowing at C4-C5 and severe left foraminal narrowing at C5-C6. There is foraminal nerve root impingeme nt on the left at both levels. Reviewed by: Dusty Khanna MD on 07/11/2021 10:57 AM PDT Approved by: Dusty Khanna MD on 07/11/2021 10:57 AM PDT Station ID: [id number]
== END 2021-07-11 08:17 | disposition home or self-care (01) ==
LOC: DI 08:16
PROVIDERS: ATTEND Nurse Practitioner
DX: M47.812 Spondylosis without myelopathy or radiculopathy, cervical region (principal); M50.31 Other cervical disc degeneration, high cervical region; M48.02 Spinal stenosis, cervical region

== ENCOUNTER 2022-02-22 15:24 | Emergency (ER) | payer MEDICAID ==
[2022-02-22] MEDS ORDERED: KETOROLAC 60 MG/2 ML VIAL IM STA (16:47)
[2022-02-22] MEDS ORDERED: HYDROmorphone 1 MG/ML CARPUJECT IM STA (16:47)
--- NOTE | 2022-02-22 16:49 | ED Physician Documentation ---
PD HPI BACK PAIN - Stated complaint Stated Complaint: BACK PX - Chief complaint Chief Complaint: Back Pain - History obtained from History obtained from: Patient - Additional information Additional information: 47-year-old woman with history of psoriatic arthritis and fibromyalgia developed a flulike illness a few days ago and laid in bed for 24 hours. After she got up the next day the flulike symptoms were gone but she has a low back spasm with severe pain with any movement. Pain does radiate into the left leg but without weakness, numbness, tingling, saddle anesthesia, or ongoing fevers. 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 - Present Medications Home Medications: Ambulatory Orders Medication Instructions Recorded Confirmed SUMAtriptan [Imitrex] 25 mg PO BID PRN #10 tablet 12/21/20 05/04/21 Cyclobenzaprine [Flexeril] 10 mg PO TID PRN #20 tablet 01/30/21 04/24/21 Etanercept [Enbrel] 50 mg INJ DAILYWM 04/24/21 Acetaminophen [Acetaminophen Extra 500 mg PO QID PRN #50 tablet 05/04/21 Strength] dexAMETHasone [Decadron] 4 mg PO DAILY 10 Days #10 tablet 05/04/21 tiZANidine [Zanaflex] 4 mg PO Q8H PRN #30 tablet 05/04/21 Cyclobenzaprine [Flexeril] 10 mg PO TID PRN #20 tablet 02/22/22 HYDROcod/ACETAM 5/325 [Ponca 5/325] 1 - 2 tab PO Q6H PRN #15 tablet 02/22/22 predniSONE [Deltasone] 60 mg PO DAILY 5 Days #15 tablet 02/22/22 - Allergies Allergies/Adverse Reactions: Allergies Allergy/AdvReac Type Severity Reaction Status Date / Time Penicillins Allergy Rash Verified 02/22/22 15:38 - Social History Does the pt smoke?: No Smoking Status: Never smoker Does the pt drink ETOH?: No Does the pt have substance abuse?: Yes - Immunizations Immunizations are current?: Yes - POLST Patient has POLST: No PD ED PE NORMAL - Vitals Vital signs reviewed: Yes - General General: Alert and oriented X 3, Other (Winces with motion but comfortable at rest) - Abdomen Abdomen: Normal bowel sounds, Soft, Non tender - Back Back: No spinal TTP, Other (Tenderness of the paralumbar muscles on both sides) - Extremities Extremities: Other (The patient has equal and normal Achilles and patellar reflexes bilaterally. Normal sensation in all areas of the legs. Patient denie s saddle anesthesia. Normal strength in flexion-extension at the ankles, knees, and flexion of the hips.) - Neuro Neuro: Alert and oriented X 3, Normal speech Results - Vitals Vitals: Vital Signs - 24 hr 02/22/22 15:33 Temperature 37.2 C Heart Rate 85 Respiratory 16 Rate Blood Pressure 142/96 H O2 Saturation 97 Oxygen O2 Source Room air PD MEDICAL DECISION MAKING - ED course ED course: This patient has seemingly uncomplicated musculoskeletal back pain. The patient has no "red flags." Specifically denies IV drug use, fevers, incontinence, saddle anesthesia. Spinal epidural abscess was considered, given that the patient has no fever, is not diabetic, has no spinal tenderness, does not use IV drugs, and has no bilateral neurologic symptoms, the diagnosis of spinal epidural abscess is considered exceedingly unlikely. Departure - Departure Disposition: 01 Home, Self Care Clinical Impression: Back spasm Condition: Good Record reviewed to determine appropriate education?: Yes Instructions: ED Spasm Back No Trauma Prescriptions: predniSONE [Deltasone] 60 mg PO DAILY 5 Days #15 tablet Cyclobenzaprine [Flexeril] 10 mg PO TID PRN #20 tablet PRN Reason: Spasms HYDROcod/ACETAM 5/325 [Ponca 5/325] 1 - 2 tab PO Q6H PRN #15 tablet PRN Reason: Pain Comments: I sent your prescriptions electronically to [facility] in [place]. Call your doctor to arrange a follow-up appointment, make the next available appointment. In the interim, return anytime if worse or if new symptoms develop. I am prescribing a short course of narcotic pain medication for you. These are potentially dangerous and addictive medications that should be used carefully. These medications may constipate you. Take an eazb-lib-izkeqvr stool softener (docusate) twice daily with plenty of water while taking these medications. If you go 24 hours without a bowel movement, take lyqe-oji-weduovu miralax, per package instructions. Do not drink or drive while taking these medications. If you received narcotic or sedating medications while in the emergency department, do not drive for 24 hours. Store this medication in a safe, secure place and out of reach of children. It is a violation of federal law to give or sell this medication to another person or to use in a manner other than prescribed. The ED will not refill narcotic prescriptions, including prescriptions lost or stolen. To dispose of unwanted medications: 1. [facility] at [address] in [place] has a medication drop box. They accept prescription medications (in pill form) Friday through Friday 9:00 a.m. to 5:00 p.m. 2. The [facility] [employer] accepts prescription medications (in pill form only) for disposal year round. Call for more information. 3. Contact the [facility] for the next [facility] sponsored prescription drug collection event. , [phone], or [phone]; Note that many narcotic pain relievers also contain Tylenol/acetaminophen. Please ensure that your total dose of acetaminophen from all sources does not exceed 3 g (3000 mg) per day.
[2022-02-22 18:00] VITALS: BP 117/89
== END 2022-02-22 17:54 | disposition home or self-care (01) ==
LOC: ED 15:24
DX: M62.830 Muscle spasm of back (principal); M54.50 Low back pain, unspecified; M79.605 Pain in left leg; M79.7 Fibromyalgia
CPT/HCPCS: 96372; 99283; J1170

== ENCOUNTER 2022-05-28 05:49 | Outpatient (CLI) | payer MEDICAID | END 2022-05-28 23:59 | disposition short-term general hospital (02) | LOC: EMS 05:49 | DX: R07.89 Other chest pain (principal); R68.84 Jaw pain; M25.512 Pain in left shoulder | CPT/HCPCS: A0425; A0427; A0999 ==

== ENCOUNTER 2022-06-20 14:46 | Outpatient (CLI) | payer MEDICAID ==
[2022-06-20] MEDS ORDERED: iohexoL-300 100 ML VIAL ONE (15:14)
[2022-06-20 15:24] LABS: CREATININE 0.9 mg/dL (0.4-1.0)
[2022-06-20] MEDS ORDERED: iohexoL-300 100 ML VIAL IVP ONE (17:00)
--- NOTE | 2022-06-21 09:30 | CT Report ---
PROCEDURE: ANGIO CHEST W/WO INDICATIONS: ASCENDING AORTA DILATION CONTRAST: 80ml Omipaque 300 TECHNIQUE: After the administration of intravenous contrast, 2 mm axial images were acquired from the pulmonary apices to the posterior costophrenic angles during the arterial phase. In addition, 1 mm lung kernel and 5 mm soft tissue kernel reconstructions were performed. 3-dimensional coronal oblique maximum int ensity projection (MIP) reformats, 8 mm axial MIP, and 5 mm coronal and sagittal MPR reformats were t hen performed through the thorax. For radiation dose reduction, the following was used: automated exp osure control, adjustment of mA and/or kV according to patient size. COMPARISON: None FINDINGS: Image quality: Excellent. Large vessels: Mild dilation of the ascending aorta, measuring 4.4 cm. Lungs and pleura: Lungs are clear. No pleural effusions or pneumothorax. Central and peripheral ai rways are patent. Left lower lobe solid nodule measuring 1.1 x 0.6 cm. Additional 4 mm solid nodule, left upper lobe (7/139). Mediastinum: Heart size is normal, without pericardial effusion. No mediastinal or hilar adenopathy . Thoracic aorta is normal in caliber and enhancement. Esophagus is normal in caliber, without hiat al hernia. Calcified left hilar node. Bones and chest wall: No suspicious bony lesions. Ribs and thoracic spine appear intact throughout. No axillary or supraclavicular adenopathy. The thyroid is normal in size and there are no incident al findings. Abdomen: Visualized upper abdominal solid organs appear normal in the early arterial phase of enhanc ement. IMPRESSION: 1.Mild dilation of the ascending aorta, measuring 4.4 cm. 2.Left lower lobe solid nodule measuring 1.1 x 0.6 cm. Given evidence of prior granulomatous disease, this is probably a developing granuloma, less likely malignancy. Recommend 3 month follow-up with lo w-dose chest CT. Reviewed by: Chas Douglas on 06/21/2022 9:29 AM PDT Approved by: Chas Douglas on 06/21/2022 9:29 AM PDT Station ID: [id number]
== END 2022-06-20 14:47 | disposition home or self-care (01) ==
LOC: LAB 14:46
PROVIDERS: ATTEND Nurse Practitioner
DX: I77.810 Thoracic aortic ectasia (principal); R91.1 Solitary pulmonary nodule
CPT/HCPCS: 36415; 71275; 82565; Q9967

== ENCOUNTER 2022-07-23 11:14 | Outpatient (CLI) | payer MEDICAID ==
--- NOTE | 2022-07-24 09:39 | Mammography Report ---
BILATERAL DIGITAL SCREENING MAMMOGRAM 3D/2D WITH EXAGGERATED CC: 07/23/2022 CLINICAL: Routine screening. Comparison is made to exams dated: 03/10/2019 mammogram and 02/23/2019 mammogram - [facility]. Both breasts are heterogeneously dense, which may obscure small masses (category c / 51-75% glandular tissue). No significant masses, calcifications, or other findings are seen in either breast. There has been no significant interval change. IMPRESSION: NEGATIVE There is no mammographic evidence of malignancy. A 1 year screening mammogram is recommended. Based on the Tyrer Cuzick model (a risk assessment model) the patients lifetime risk is 9.7% and her 10 year risk is 2.0%. According to the ACR, ACS, and NCCN guidelines, an annual breast MRI exam kisha g with mammogram is recommended if the patients lifetime risk is 20% or greater. This exam was interpreted at Station ID: [id number]. NOTE: For mammograms, a report in lay terms will be sent to the patient. Approximately 15% of breast malignancies will not be visualized mammographically. In the management of a palpable breast mass, a negative mammogram must not discourage biopsy of a clinically suspicious lesion. Electronically Signed By: Antwon pink/abdifatah:07/23/2022 18:01:33 letter sent: No_Letter ACR BI-RADS Category 1: Negative 3341F PARENCHYMAL PATTERN: (D) - The breast(s) demonstrate(s) heterogeneously dense fibroglandular ann catherine. BI-RADS CATEGORY: (1) - 1 Mammogram [id number] 1 year screening LATERALITY: (B)
== END 2022-07-23 11:15 | disposition home or self-care (01) ==
LOC: DI 11:14
DX: Z12.31 Encounter for screening mammogram for malignant neoplasm of breast (principal)

== ENCOUNTER 2022-08-02 19:24 | Emergency (ER) | payer MEDICAID ==
[2022-08-02 19:54] LABS: BASOPHILS % (AUTO) 0.1 %; EOSINOPHILS # (AUTO) 0.2 10^3/uL (0.0-0.7); HCT - HEMATOCRIT 42.7 % (37.0-47.0); HGB - HEMOGLOBIN 14.3 g/dL (12.0-16.0); LYMPHOCYTES # (AUTO) 2.5 10^3/uL (1.5-3.5); LYMPHOCYTES % (AUTO) 33.5 %; MEAN CORPUSCULAR HEMOGLOBIN 30.9 pg (27.0-31.0); MEAN CORPUSCULAR HGB CONC 33.5 g/dL (32.0-36.0); MEAN CORPUSCULAR VOLUME 92.2 fL (81.0-99.0); MONOCYTES # (AUTO) 0.5 10^3/uL (0.0-1.0); MONOCYTES % (AUTO) 6.3 %; NEUTROPHILS # (AUTO) 4.3 10^3/uL (1.5-6.6); NEUTROPHILS % (AUTO) 57.8 %; PLT - PLATELET COUNT 159 10^3/uL (130-450); RED BLOOD COUNT 4.63 10^6/uL (4.20-5.40); RED CELL DISTRIBUTION WIDTH 12.3 % (12.0-15.0); WHITE BLOOD COUNT 7.4 x10^3/uL (4.8-10.8)
--- NOTE | 2022-08-02 20:02 | ED Physician Documentation ---
History of Present Illness - Stated complaint Stated Complaint: CHEST PX - Chief complaint Chief Complaint: Cardiac - History obtained from History obtained from: Patient - History of Present Illness Timing: Today Pain level max: 5 Pain level now: 2 - Additonal information Additional information: Patient is a 47-year-old female who presents to the emergency department with chest pain. She states this started about 5 hours prior to arrival she states that she had a heart attack with 2 cardiac stents at the end of May at [facility] in [place]. She has been taking her medications as prescribed. She does not know who her mess attendant is. She states she has not had any chest pain since that time. She states that this feels different than her heart attack. Described as being on the right side of the chest, light pressure. No change with nitroglycerin. Nothing makes it better or worse. No change with exertion, eating, drinking. She states she also feels anxious and thinks that it could be anxiety. 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 - Present Medications Home Medications: Ambulatory Orders Medication Instructions Recorded Confirmed SUMAtriptan [Imitrex] 25 mg PO BID PRN #10 tablet 12/21/20 05/04/21 Cyclobenzaprine [Flexeril] 10 mg PO TID PRN #20 tablet 01/30/21 04/24/21 Etanercept [Enbrel] 50 mg INJ DAILYWM 04/24/21 Acetaminophen [Acetaminophen Extra 500 mg PO QID PRN #50 tablet 05/04/21 Strength] dexAMETHasone [Decadron] 4 mg PO DAILY 10 Days #10 tablet 05/04/21 tiZANidine [Zanaflex] 4 mg PO Q8H PRN #30 tablet 05/04/21 Cyclobenzaprine [Flexeril] 10 mg PO TID PRN #20 tablet 02/22/22 HYDROcod/ACETAM 5/325 [[place] 5/325] 1 - 2 tab PO Q6H PRN #15 tablet 02/22/22 predniSONE [Deltasone] 60 mg PO DAILY 5 Days #15 tablet 02/22/22 - Allergies Allergies/Adverse Reactions: Allergies Allergy/AdvReac Type Severity Reaction Status Date / Time Penicillins Allergy Rash Verified 08/02/22 19:28 - Social History Does the pt smoke?: No Smoking Status: Never smoker Does the pt drink ETOH?: No Does the pt have substance abuse?: Yes - Immunizations Immunizations are current?: Yes - POLST Patient has POLST: No PD ED PE NORMAL - Vitals Vital signs reviewed: Yes - General General: Alert and oriented X 3, No acute distress - HEENT HEENT: PERRL, Moist mucous membranes - Neck Neck: Supple, no meningeal sign - Cardiac Cardiac: RRR, No murmur, Strong equal pulses - Respiratory Respiratory: No respiratory distress, Clear bilaterally - Abdomen Abdomen: Soft, Non tender, Non distended - Derm Derm: Warm and dry - Extremities Extremities: No edema, No calf tenderness / cord - Neuro Neuro: Alert and oriented X 3 - Psych Psych: Normal mood, Normal affect Results - Vitals Vitals: Vital Signs - 24 hr 08/02/22 08/02/22 08/02/22 19:26 19:44 19:55 Temperature 36.5 C Heart Rate 72 69 Respiratory 16 25 H Rate Blood Pressure 161/105 H Blood Pressure 142/98 H [Right] O2 Saturation 100 98 08/02/22 08/02/22 08/02/22 20:00 20:14 20:30 Temperature Heart Rate 82 80 74 Respiratory 12 21 17 Rate Blood Pressure 142/98 H 137/95 H 130/95 H Blood Pressure [Right] O2 Saturation 99 95 99 08/02/22 08/02/22 08/02/22 21:07 21:30 22:08 Temperature Heart Rate 67 66 64 Respiratory 26 H 18 13 Rate Blood Pressure 133/97 H 133/97 H 137/90 H Blood Pressure [Right] O2 Saturation 100 97 100 08/02/22 22:17 Temperature 36.6 C Heart Rate Respiratory Rate Blood Pressure Blood Pressure [Right] O2 Saturation Oxygen O2 Source Room air - EKG (time done) 1929 EKG releavant findings:: EKG personally interpreted by author of this note. Relevant findings are: Rate: Rate (enter#) (75) Rhythm: NSR [place]: Normal Intervals: Normal SD QRS: LVH Ischemia: T wave inversion (III, aVF, V3) Compare to prior EKG: Old EKG unavailable - Labs Labs: Laboratory Tests 08/02/22 08/02/22 08/02/22 19:50 19:50 19:50 WBC 7.4 RBC 4.63 Hgb 14.3 Hct 42.7 MCV 92.2 MCH 30.9 MCHC 33.5 RDW 12.3 Plt Count 159 MPV 11.0 H Neut # (Auto) 4.3 Lymph # (Auto) 2.5 [place] # (Auto) 0.5 Eos # (Auto) 0.2 Baso # (Auto) 0.0 Absolute Nucleated RBC 0.00 Nucleated RBC % 0.0 Sodium 141 Potassium 4.2 Chloride 106 Carbon Dioxide 25 Anion Gap 10.0 BUN 11 Creatinine 0.6 Estimated GFR (MDRD) 107 Glucose 87 Calcium 9.1 Total Bilirubin 1.0 AST 23 ALT 28 Alkaline Phosphatase 57 Troponin I High Sens 4.5 Total Protein 7.0 Albumin 4.2 Globulin 2.8 Albumin/Globulin Ratio 1.5 Lipase 54 H 08/02/22 21:34 WBC RBC Hgb Hct MCV MCH MCHC RDW Plt Count MPV Neut # (Auto) Lymph # (Auto) [place] # (Auto) Eos # (Auto) Baso # (Auto) Absolute Nucleated RBC Nucleated RBC % Sodium Potassium Chloride Carbon Dioxide Anion Gap BUN Creatinine Estimated GFR (MDRD) Glucose Calcium Total Bilirubin AST ALT Alkaline Phosphatase Troponin I High Sens 4.8 Total Protein Albumin Globulin Albumin/Globulin Ratio Lipase - Rads (name of study) Chest x-ray Relevant Findings:: Final report received, See rad report (No acute abnormality) PD Medical Decision Making - ED course Complexity details: reviewed results, re-evaluated patient (Patient does feel better after Ativan), considered differential (No ST elevation TX, no aortic dissection, no PE, no tension pneumothorax, no aortic aneurysm), d/w patient ED course: Patient is a 47-year-old female with atypical chest pain. Does not feel similar to her prior TX. No acute findings on chest x-ray, EKG or laboratory testing. Negative high-sensitivity troponin x2. Discussed the case with Dr. Leon, cardiology on-call at [facility] in [place]. Recommends follow-up with her mess attendant on Friday. She will return if she worsens. Patient counseled regarding signs and symptoms for which I believe and urgent re-evaluation would be necessary. Patient with good understanding of and agreement to plan and is comfortable going home at this time This document was made in part using voice recognition software. While efforts are made to proofread this document, sound alike and grammatical errors may occur. Departure - Departure Disposition: Home, Self Care Clinical Impression: Chest pain Qualifiers: Chest pain type: unspecified Qualified Code(s): R07.9 - Chest pain, unspecified Condition: Good Instructions: ED Chest Pain Atypical Unkn Cause Follow-Up: Malina Johnson ARNP [Primary Care Provider] - Comments: Please follow-up with your mess attendant for further care. The cause of your chest pain today is unclear. Your EKG and high-sensitivity troponin are negative. I spoke with Dr. Leon, on-call for cardiology at [facility], he recommends following up with your primary mess attendant. Please return if you worsen. Discharge Date/Time: 08/02/22 22:19
[2022-08-02 20:08] LABS: ALBUMIN 4.2 g/dL (3.2-5.5); ALBUMIN/GLOBULIN RATIO 1.5 (1.0-2.2); CALCIUM 9.1 mg/dL (8.5-10.3); CREATININE 0.6 mg/dL (0.4-1.0); POTASSIUM 4.2 mmol/L (3.5-5.0)
[2022-08-02] MEDS ORDERED: LORazepam 2 MG/ML VIAL IVP STA (20:18)
--- NOTE | 2022-08-02 20:58 | XRAY Report ---
PROCEDURE: Chest 1 View X-Ray INDICATIONS: Chest Pain TECHNIQUE: One view of the chest was acquired. COMPARISON: Chest x-ray 01/30/2021. FINDINGS: Surgical changes and devices: None. Lungs and pleura: No pleural effusions or pneumothorax. Lungs are clear. Mediastinum: Mediastinal contours appear normal. Heart size is normal. Bones and chest wall: No suspicious bony lesions. Overlying soft tissues appear unremarkable. IMPRESSION: No acute cardiopulmonary disease. Reviewed by: Asad Johnson MD on 08/02/2022 8:57 PM PDT Approved by: Asad Johnson MD on 08/02/2022 8:57 PM PDT Station ID: [id number]
[2022-08-02 22:09] VITALS: BP 137/90
== END 2022-08-02 22:19 | disposition home or self-care (01) ==
LOC: ED 19:24
DX: R07.9 Chest pain, unspecified (principal)
CPT/HCPCS: 36415; 71045; 80053; 83690; 84484; 85025; 93005; 96374; 99283; 99284; J2060

== ENCOUNTER 2022-08-20 11:44 | Outpatient (CLI) | payer MEDICAID ==
--- NOTE | 2022-08-20 18:27 | CT Report ---
PROCEDURE: CHEST WO INDICATIONS: LUNG NODULES TECHNIQUE: Noncontrast 1mm axial images were acquired from the pulmonary apices to the posterior costophrenic an gles. Axial 5 mm soft tissue kernel reconstructions were performed as well as 8 mm axial MIP and cor onal and sagittal 5 mm reformations. For radiation dose reduction, the following was used: automate d exposure control, adjustment of mA and/or kV according to patient size. COMPARISON: CT 06/20/2022 FINDINGS: Image quality: Excellent. Lungs and pleura: No consolidation. No pleural effusions. No pneumothorax. Similar 1.0 x 0.6 cm nodu le in the left lower lobe (series 4, image 189); adjacent solid nodules are present. Intrapulmonary l ymph node along the right minor fissure. Mediastinum: Heart size is enlarged. No pericardial effusions. No mediastinal adenopathy by size crit eria. The ascending aorta measures 4.0 cm on today's examination, previously 4.4 cm; difference in ga ting technique could account for size discrepancy. Calcified left hilar node. Chest wall and lower neck: Thyroid is unremarkable. No axillary or supraclavicular adenopathy by size . Bones: No aggressive osseous abnormality. Upper Abdomen: Unremarkable. IMPRESSION: Stable 1.0 x 0.6 cm solid nodule in the left lower lobe, with associated satellite nodularity. Findin gs probably represent granulomatous disease, given stability and the presence of a calcified left hil ar node. Recommend additional follow-up in 6 months to establish stability. Reviewed by: Chas Douglas on 08/20/2022 5:25 PM [email or web address] Approved by: Chas Douglas on 08/20/2022 5:25 PM AKDT Station ID: [id number]
== END 2022-08-20 11:45 | disposition home or self-care (01) ==
LOC: DI 11:44
PROVIDERS: ATTEND Nurse Practitioner
DX: R91.8 Other nonspecific abnormal finding of lung field (principal)

== ENCOUNTER 2022-09-03 08:48 | Emergency (ER) | payer MEDICAID ==
--- NOTE | 2022-09-03 09:10 | ED Physician Documentation ---
PD HPI URI - Stated complaint Stated Complaint: FEVER,PX,DISCOMFORT - Chief complaint Chief Complaint: General - History obtained from History obtained from: Patient - History of Present Illness Timing - onset: Yesterday Timing duration: Days (1-2) Timing details: Abrupt onset, Still present Associated symptoms: Fever, Chills, Sweats, Nasal congestion, Sore throat, Dry cough, NVD, Other (marked diffuse muscle aches and in lower back. There are common fibromyalgia pain areas but much much worse than baseline pains the past 1-2 days.). No: Rhinorrhea, Dyspnea Contributing factors: Immunocompromised (due to meds for her psoriatic arthritis.). No: Sick contact, Unimmunized Similar symptoms before: No diagnosis (she has had her FM muscles pains flare at times, but usually treated by OTCs at home.) Recently seen: Not recently seen Review of Systems Constitutional: reports: Fever, Chills, Myalgias, Fatigue Ears: denies: Ear pain Nose: reports: Congestion, Sinus pressure / pain (frontal area). denies: Epistaxis Throat: denies: Sore throat Cardiac: denies: Chest pain / pressure, Palpitations Respiratory: reports: Cough : denies: Dysuria Musculoskeletal: reports: Back pain. denies: Neck pain Neurologic: reports: Generalized weakness. 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: Hysterectomy - Present Medications Home Medications: Ambulatory Orders Medication Instructions Recorded Confirmed SUMAtriptan [Imitrex] 25 mg PO BID PRN #10 tablet 12/21/20 05/04/21 Cyclobenzaprine [Flexeril] 10 mg PO TID PRN #20 tablet 01/30/21 04/24/21 Etanercept [Enbrel] 50 mg INJ DAILYWM 04/24/21 Acetaminophen [Acetaminophen Extra 500 mg PO QID PRN #50 tablet 05/04/21 Strength] dexAMETHasone [Decadron] 4 mg PO DAILY 10 Days #10 tablet 05/04/21 tiZANidine [Zanaflex] 4 mg PO Q8H PRN #30 tablet 05/04/21 Cyclobenzaprine [Flexeril] 10 mg PO TID PRN #20 tablet 02/22/22 HYDROcod/ACETAM 5/325 [[place] 5/325] 1 - 2 tab PO Q6H PRN #15 tablet 02/22/22 predniSONE [Deltasone] 60 mg PO DAILY 5 Days #15 tablet 02/22/22 HYDROcod/ACETAM 5/325 [[place] 5/325] 1 ea PO Q6H PRN #18 tablet 09/03/22 Ondansetron Odt [Zofran] 4 mg TL Q6H PRN #15 tablet 09/03/22 dexAMETHasone [Decadron] 4 mg PO DAILY #5 tablet 09/03/22 - Allergies Allergies/Adverse Reactions: Allergies Allergy/AdvReac Type Severity Reaction Status Date / Time Penicillins Allergy Rash Verified 08/02/22 19:28 - Social History Does the pt smoke?: No Smoking Status: Never smoker Does the pt drink ETOH?: No Does the pt have substance abuse?: Yes - Immunizations Immunizations are current?: Yes - POLST Patient has POLST: No PD ED PE NORMAL - Vitals Vital signs reviewed: Yes - General General: Alert and oriented X 3, Well developed/nourished - HEENT HEENT: Ears normal, Moist mucous membranes, Pharynx benign - Neck Neck: Supple, no meningeal sign, No adenopathy - Cardiac Cardiac: RRR, No murmur - Respiratory Respiratory: Clear bilaterally - Abdomen Abdomen: Soft, Non tender Results - Vitals Vitals: Vital Signs - 24 hr 09/03/22 09/03/22 09/03/22 09:01 10:35 11:21 Temperature 38.2 C H 37.2 C 37.1 C Heart Rate 88 85 77 Respiratory 18 12 18 Rate Blood Pressure 129/81 H 116/74 114/77 O2 Saturation 98 95 96 Oxygen O2 Source Room air - Labs Labs: Laboratory Tests 09/03/22 09/03/22 09/03/22 09:36 09:36 09:36 WBC 4.5 L RBC 4.26 Hgb 13.4 Hct 38.7 MCV 90.8 MCH 31.5 H MCHC 34.6 RDW 12.4 Plt Count 118 L MPV 11.5 H Neut # (Auto) 3.6 Lymph # (Auto) 0.4 L [place] # (Auto) 0.5 Eos # (Auto) 0.0 Baso # (Auto) 0.0 Absolute Nucleated RBC 0.00 Nucleated RBC % 0.0 Sodium 134 L Potassium 3.4 L Chloride 104 Carbon Dioxide 22 Anion Gap 8.0 BUN 11 Creatinine 0.5 Estimated GFR (MDRD) 132 Glucose 102 H Lactic Acid 0.7 Calcium 8.8 Nasal Adenovirus (PCR) Nasal B. parapertussis DNA (PCR) Nasal Coronavir 229E PCR Nasal Coronavir HKU1 PCR Nasal Coronavir NL63 PCR Nasal Coronavir OC43 PCR Nasal Enterovir/Rhinovir PCR Nasal Influenza B PCR Nasal Influenza A PCR Nasal Parainfluen 1 PCR Nasal Parainfluen 2 PCR Nasal Parainfluen 3 PCR Nasal Parainfluen 4 PCR Nasal RSV (PCR) Nasal B.pertussis DNA PCR Nasal C.pneumoniae (PCR) [place] Human Metapneumo PCR Nasal M.pneumoniae (PCR) Nasal SARS-CoV-2 (PCR) 09/03/22 09:36 WBC RBC Hgb Hct MCV MCH MCHC RDW Plt Count MPV Neut # (Auto) Lymph # (Auto) [place] # (Auto) Eos # (Auto) Baso # (Auto) Absolute Nucleated RBC Nucleated RBC % Sodium Potassium Chloride Carbon Dioxide Anion Gap BUN Creatinine Estimated GFR (MDRD) Glucose Lactic Acid Calcium Nasal Adenovirus (PCR) NOT DETECTED Nasal B. parapertussis DNA (PCR) NOT DETECTED Nasal Coronavir 229E PCR NOT DETECTED Nasal Coronavir HKU1 PCR NOT DETECTED Nasal Coronavir NL63 PCR NOT DETECTED Nasal Coronavir OC43 PCR NOT DETECTED Nasal Enterovir/Rhinovir PCR NOT DETECTED Nasal Influenza B PCR NOT DETECTED Nasal Influenza A PCR NOT DETECTED Nasal Parainfluen 1 PCR NOT DETECTED Nasal Parainfluen 2 PCR NOT DETECTED Nasal Parainfluen 3 PCR NOT DETECTED Nasal Parainfluen 4 PCR NOT DETECTED Nasal RSV (PCR) NOT DETECTED Nasal B.pertussis DNA PCR NOT DETECTED Nasal C.pneumoniae (PCR) NOT DETECTED [place] Human Metapneumo PCR NOT DETECTED Nasal M.pneumoniae (PCR) NOT DETECTED Nasal SARS-CoV-2 (PCR) DETECTED A PD Medical Decision Making - ED course Complexity details: reviewed results (she tests positive for COVID. CXR is clear without pnemonia. WBC and lactic acid are normal. Not suggesting bacterial infection nor sepsis. ), considered differential (sounds like viral syndrome and with marked flare of her fibromyalgia. No headache nor vomiting. No rash nor sores over baseline. So psoriasis is not increased at this itme. But her fibromyalgia is. She is on immunomodulator for her psoriasis, so will get labs to eval for sepsis/ bacterial.), d/w patient Departure - Departure Disposition: 01 Home, Self Care Clinical Impression: Myalgia due to viral infection, Fibromyalgia muscle pain, COVID-19, Viral URI Condition: Stable Record reviewed to determine appropriate education?: Yes Instructions: ED Upper Resp Infec No Abx Tx Prescriptions: dexAMETHasone [Decadron] 4 mg PO DAILY #5 tablet HYDROcod/ACETAM 5/325 [[place] 5/325] 1 ea PO Q6H PRN #18 tablet PRN Reason: Pain Ondansetron Odt [Zofran] 4 mg TL Q6H PRN #15 tablet PRN Reason: Nausea / Vomiting Comments: Your chest x-ray is clear without any signs of pneumonia. Your blood test show normal white count and lactate so no obvious signs of sepsis or more severe infection. Your respiratory panel was positive for COVID which can explain your symptoms. Stay well-hydrated. Tylenol every 4-6 hours if needed for fevers or pains. Continue your other usual medicines. You do have enough medications to account for interactions with the Paxlovid so I would not advocate an antiviral medicine at this time. The illness itself will create the muscle aches and will also flareup your fibromyalgia and psoriatic arthritis. We can treat that with a short course of Decadron steroid daily. Ondansetron if needed for nausea. Add hydrocodone if needed for pains in the short-term. I sent your prescriptions to [facility] pharmacy in [place]. I am prescribing a short course of narcotic pain medication for you. These are potentially dangerous and addictive medications that should be used carefully. These medications may constipate you. Take an [id number] stool softener such as docusate twice daily with plenty of water while taking these medications. If you go 24 hours without a bowel movement, take [id number] MiraLAX, per package instructions. Do not drink or drive while taking these medications. If you received narcotic or sedating medications while in the emergency de partment do not drive for 24 hours. Store this medication in a safe, secure place and out of reach of children. It is a violation of federal law to give or sell this medication to another person or to use in a manner other than prescribed. The ED will not refill narcotic prescriptions, including prescriptions lost or stolen. You can dispose of unwanted medications at the [facility]'s office or at several pharmacies such as [facility]. You will likely be ill for least 5 to 7 days. Discharge Date/Time: 09/03/22 11:23
[2022-09-03] MEDS ORDERED: SODIUM CHLORIDE 0.9% 1,000 ML IV STA (09:23)
[2022-09-03] MEDS ORDERED: KETOROLAC 15 MG/ML VIAL IVP STA (09:23)
[2022-09-03] MEDS ORDERED: ONDANSETRON 4 MG/2 ML VIAL IVP STA (09:23)
[2022-09-03] MEDS ORDERED: HYDROmorphone 1 MG/ML CARPUJECT IVP STA (09:23)
[2022-09-03 09:43] LABS: BASOPHILS % (AUTO) 0.2 %; HCT - HEMATOCRIT 38.7 % (37.0-47.0); HGB - HEMOGLOBIN 13.4 g/dL (12.0-16.0); LYMPHOCYTES # (AUTO) 0.4 10^3/uL (1.5-3.5); LYMPHOCYTES % (AUTO) 7.7 %; MEAN CORPUSCULAR HEMOGLOBIN 31.5 pg (27.0-31.0); MEAN CORPUSCULAR HGB CONC 34.6 g/dL (32.0-36.0); MEAN CORPUSCULAR VOLUME 90.8 fL (81.0-99.0); MEAN PLATELET VOLUME 11.5 fL (7.9-10.8); MONOCYTES # (AUTO) 0.5 10^3/uL (0.0-1.0); MONOCYTES % (AUTO) 11.7 %; NEUTROPHILS # (AUTO) 3.6 10^3/uL (1.5-6.6); PLT - PLATELET COUNT 118 10^3/uL (130-450); RED BLOOD COUNT 4.26 10^6/uL (4.20-5.40); RED CELL DISTRIBUTION WIDTH 12.4 % (12.0-15.0); WHITE BLOOD COUNT 4.5 x10^3/uL (4.8-10.8)
[2022-09-03 09:53] LABS: CALCIUM 8.8 mg/dL (8.5-10.3); CREATININE 0.5 mg/dL (0.4-1.0); POTASSIUM 3.4 mmol/L (3.5-5.0)
--- NOTE | 2022-09-03 10:12 | XRAY Report ---
PROCEDURE: Chest 1 View X-Ray INDICATIONS: cough and fever; h/o psoriatic arthritis TECHNIQUE: One view of the chest was acquired. COMPARISON: None. FINDINGS: Surgical changes and devices: None. Lungs and pleura: No pleural effusions or pneumothorax. Lungs are clear. Mediastinum: Mediastinal contours appear unchanged. Heart size is normal. Bones and chest wall: No suspicious bony lesions. Overlying soft tissues appear unremarkable. IMPRESSION: No acute cardiopulmonary process identified. Reviewed by: Antwon Lozano MD on 09/03/2022 10:11 AM PDT Approved by: Antwon Lozano MD on 09/03/2022 10:11 AM PDT Station ID: [id number]
[2022-09-03] MEDS ORDERED: DEXAMETHASONE 10 MG/ML VIAL IVP STA (10:23)
[2022-09-03 10:36] LABS: B. PARAPERTUSSIS- RESP PCR PAN NOT DETECTED; B. PERTUSSIS- RESP PCR PANEL NOT DETECTED; C. PNEUMONIAE- RESP PCR PANEL NOT DETECTED; CORONAVIRUS 229E-RESP PCR NOT DETECTED; CORONAVIRUS HKU1-RESP PCR NOT DETECTED; CORONAVIRUS NL63-RESP PCR NOT DETECTED; CORONAVIRUS OC43-RESP PCR NOT DETECTED; HUMAN METAPNEUMOVIRUS NOT DETECTED; INFLUENZA A- RESP PCR PANEL NOT DETECTED; INFLUENZA B - RESP PCR PANEL NOT DETECTED; M. PNEUMONIAE- RESP PCR PANEL NOT DETECTED; PARAINFLUENZA VIRUS 1 NOT DETECTED; PARAINFLUENZA VIRUS 2 NOT DETECTED; PARAINFLUENZA VIRUS 3 NOT DETECTED; PARAINFLUENZA VIRUS 4 NOT DETECTED; RHINOVIRUS/ENTEROVIRUS NOT DETECTED; RSV- RESP PCR PANEL NOT DETECTED
[2022-09-03 10:38] LABS: SARS-CoV-2 -RESP PCR PANEL DETECTED
[2022-09-03] MEDS ORDERED: ACETAMINOPHEN 325 MG TABLET PO STA (10:47)
[2022-09-03 11:25] VITALS: BP 114/77
== END 2022-09-03 11:23 | disposition home or self-care (01) ==
LOC: ED 08:48
DX: U07.1 COVID-19 (principal); M79.7 Fibromyalgia; L40.50 Arthropathic psoriasis, unspecified
CPT/HCPCS: 36415; 71045; 80048; 83605; 85025; 87633; 96374; 96375; 99283; 99284; A9270; J1170

== ENCOUNTER 2022-09-18 11:07 | Emergency (ER) | payer MEDICAID ==
[2022-09-18 11:15] VITALS: BP 140/80
--- NOTE | 2022-09-18 11:55 | ED Physician Documentation ---
History of Present Illness - Stated complaint Stated Complaint: RASH,ITCHY - Chief complaint Chief Complaint: General - History obtained from History obtained from: Patient - Additonal information Additional information: 47-year-old female presents with a pruritic rash that she noticed on her arms and legs when she woke up today and it has been spreading throughout the day. She denies any known new soaps lotions or other irritants, no other potential contacts. She does have a history of psoriatic arthritis, psoriasis though no current Psoriasis rashes. She has not had a fever or chills, no cough or URI symptoms, no chest pain or dyspnea, no abdominal pain nausea vomiting or diarrhea. No Sick contacts. No similar rash in the past. She has Attempted Benadryl topically without relief. 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 - Present Medications Home Medications: Ambulatory Orders Medication Instructions Recorded Confirmed SUMAtriptan [Imitrex] 25 mg PO BID PRN #10 tablet 12/21/20 05/04/21 Atorvastatin Calcium [Lipitor] 80 mg PO DAILY 09/18/22 09/18/22 Famotidine [Pepcid] 20 mg PO BID #10 tablet 09/18/22 Losartan [Cozaar] 50 mg PO DAILY 09/18/22 09/18/22 Metoprolol Succinate [Toprol Xl] 50 mg PO DAILY 09/18/22 09/18/22 Pantoprazole [Protonix] 40 mg PO DAILY 09/18/22 09/18/22 Prasugrel HCl 10 mg PO DAILY 09/18/22 09/18/22 Risankizumab-Rzaa [Skyrizi] 1 ml SUBQ .MONTHLY 09/18/22 09/18/22 diphenhydrAMINE [Benadryl] 25 mg PO Q4-6H #20 cap 09/18/22 predniSONE [Deltasone] 40 mg PO DAILY 5 Days #10 tablet 09/18/22 - Allergies Allergies/Adverse Reactions: Allergies Allergy/AdvReac Type Severity Reaction Status Date / Time Penicillins Allergy Rash Verified 09/18/22 11:11 - Social History Does the pt smoke?: No Smoking Status: Never smoker Does the pt drink ETOH?: No Does the pt have substance abuse?: Yes - Immunizations Immunizations are current?: Yes - POLST Patient has POLST: No PD ED PE NORMAL - Vitals Vital signs reviewed: Yes - General General: Alert and oriented X 3, No acute distress, Well developed/nourished - HEENT HEENT: Atraumatic, Moist mucous membranes - Cardiac Cardiac: RRR, No murmur - Respiratory Respiratory: No respiratory distress, Clear bilaterally - Derm Derm: Normal color, Warm and dry, Other (There is a scattered maculopapular rash on arms and legs, lesions are anywhere from 1mm to 3 mm in size, there are no pustules or vesicles, no drainage. They are nontender to touch.They have a flat area of erythema with slight raised center appear dry.) Results - Vitals Vitals: Vital Signs - 24 hr 09/18/22 11:12 Temperature 36.5 C Heart Rate 76 Respiratory 18 Rate Blood Pressure 140/80 H O2 Saturation 99 Oxygen O2 Source Room air PD Medical Decision Making - ED course Complexity details: considered differential, d/w patient ED course: 47-year-old female presented with a pruritic rash as described in HPI. She is well-appearing on physical exam, no acute distress, nontoxic. She has not number of maculopapular lesions on the arms and legs, none on his torso or face, did review nontender, no vesicles or ulcerations. She is very pruritic. I suspect this is a irritant contact dermatitis or other allergic reaction versus autoimmune reaction given her history I do not think it is anything serious at this time, does not appear to be a bacterial or fungal infection. Recommended that we treat with a short course of steroids and histamine blockers to see if that gives her some relief. She was advised to keep skin well moisturized with hypoallergenic lotion and she can use a topical anti-itch cream as well. If worsening symptoms such as respiratory symptoms or fever, she is advised to return to the ER otherwise follow-up with PCP or dermatology in outpatient basis. Departure - Departure Disposition: 01 Home, Self Care Clinical Impression: Pruritic rash determined by examination Condition: Good Instructions: ED Dermatitis Contact Prescriptions: diphenhydrAMINE [Benadryl] 25 mg PO Q4-6H #20 cap predniSONE [Deltasone] 40 mg PO DAILY 5 Days #10 tablet Famotidine [Pepcid] 20 mg PO BID #10 tablet Comments: As we discussed, I am not entirely sure what has caused your rash today but I do not think it is anything serious. It is likely a allergic reaction or contact dermatitis. Please utilize the Benadryl, famotidine and I have given you a short course of steroids for your symptoms. You can continue the topical anti- itch cream, avoid any soaps, lotions, new detergents, and scapular skin well moisturized with hypoallergenic lotion. Please return if you develop a fever or worsening symptoms otherwise follow-up with your PCP or Specialist.
== END 2022-09-18 11:58 | disposition home or self-care (01) ==
LOC: ED 11:07
DX: L29.9 Pruritus, unspecified (principal)
CPT/HCPCS: 99281; 99283

== ENCOUNTER 2022-10-28 09:51 | Emergency (ER) | payer MEDICAID ==
[2022-10-28] MEDS ORDERED: HYDROmorphone 1 MG/ML CARPUJECT IM STA (12:14)
--- NOTE | 2022-10-28 12:14 | ED Physician Documentation ---
History of Present Illness - Stated complaint Stated Complaint: JOINT PX - Chief complaint Chief Complaint: General - Additonal information Additional information: 47-year-old female presents to the emergency department for evaluation of gene ralized body pain. Reports a history of rheumatoid arthritis. She is being followed by [facility] heeler for which she takes Skyrizi. She is in between injections and reports that for the last several days her pain has been on tolerable. She has not had any fevers. Taking Tylenol and ibuprofen without resolution of symptoms. She presents to the emergency department crying and tearful. No recent falls or trauma. 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 - Present Medications Home Medications: Ambulatory Orders Medication Instructions Recorded Confirmed Atorvastatin Calcium [Lipitor] 80 mg PO DAILY 09/18/22 10/28/22 Losartan [Cozaar] 50 mg PO DAILY 09/18/22 10/28/22 Metoprolol Succinate [Toprol Xl] 50 mg PO DAILY 09/18/22 10/28/22 Risankizumab-Rzaa [Skyrizi] 1 ml SUBQ .MONTHLY 09/18/22 10/28/22 oxyCODONE [Roxicodone] 5 mg PO BID #15 tablet 10/28/22 - Allergies Allergies/Adverse Reactions: Allergies Allergy/AdvReac Type Severity Reaction Status Date / Time Penicillins Allergy Rash Verified 10/16/22 23:40 - Social History Does the pt smoke?: No Smoking Status: Never smoker Does the pt drink ETOH?: No Does the pt have substance abuse?: Yes - Immunizations Immunizations are current?: Yes - POLST Patient has POLST: No PD ED PE NORMAL - General General: Alert and oriented X 3, No acute distress - HEENT HEENT: PERRL - Cardiac Cardiac: RRR, No murmur - Respiratory Respiratory: No respiratory distress - Abdomen Abdomen: Normal bowel sounds, Soft, Non tender - Derm Derm: Normal color, Warm and dry, No rash - Extremities Extremities: No deformity - Neuro Neuro: Alert and oriented X 3 Eye Opening: Spontaneous Motor: Obeys Commands Verbal: Oriented GCS Score: 15 Results - Vitals Vitals: Vital Signs - 24 hr 10/28/22 10:10 Temperature 36.9 C Heart Rate 69 Respiratory 20 Rate Blood Pressure 139/83 H O2 Saturation 98 Oxygen O2 Source Room air PD Medical Decision Making - ED course Complexity details: reviewed results, d/w patient ED course: 47-year-old female presents to the emergency department for uncontrolled joint and body pain in the setting of rheumatoid arthritis. Being followed by rheumatology at [facility]. In between next scheduled dose of Skyrizi. On exam cardiopulmonary and physical exam was essentially unremarkable though she is crying and tearful mostly due to her uncontrolled pain and frustration with her arthritis. Here in the emergency department I did administer her 1 mg of Dilaudid IM. I discussed with patient that we would prescribe a limited amount of oxycodone until she is able to get her next dose of Skyrizi or range other pain control alternatives with her heeler or PCP. She was grateful for this. I have reviewed her PDMP and do not find a record of abuse or concerning prescription history. She is discharged home in stable condition with usual emergent return precautions discussed. I am prescribing a short course of short-acting opioid pain medication for this patient. 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 I have discussed that the opioids are for short term therapy only, and will not be refilled from the ED. Departure - Departure Disposition: 01 Home, Self Care Clinical Impression: Rheumatoid arthritis flare Condition: Stable Prescriptions: oxyCODONE [Roxicodone] 5 mg PO BID #15 tablet Comments: Lisa I am sending 15 oxycodone tablets to the [facility] in [place]. These are to be used once or twice daily for your pain. We are unable to refill this medication for any reason through the emergency department. I do recommend that you take Tylenol 500 mg with food 3-4 times a day. I also recommend ibuprofen 600 mg taken with food 3-4 times a day. It is critical that you discuss this ED visit with your primary care doctor and/or your heeler. A plan should be in place to help manage arthritis flares in between injections. Return to the ER for any falls, fevers or other emergent concerns. I am prescribing a short course of narcotic pain medication for you. These are potentially dangerous and addictive medications that should be used carefully. These medications may constipate you. Take an mbec-kxj-rmialcc stool softener (docusate) twice daily with plenty of water while taking these medications. If you go 24 hours without a bowel movement, take xdcn-sqe-nurabun miralax, per package instructions. Do not drink or drive while taking these medications. If you received narcotic or sedating medications while in the emergency department, do not drive for 24 hours. Store this medication in a safe, secure place and out of reach of children. It is a violation of federal law to give or sell this medication to another person or to use in a manner other than prescribed. The ED will not refill narcotic prescriptions, including prescriptions lost or stolen. To dispose of unwanted medications: 1. [facility] at [address] [facility] in [place] has a medication drop box. They accept prescription medications (in pill form) Friday through Friday 9:00 a.m. to 5:00 p.m. 2. The [facility] [employer] accepts prescription medications (in pill form only) for disposal year round. Call for more information. 3. Contact the [facility] for the next [employer] sponsored prescription drug collection event. , [phone], or [phone]; Note that many narcotic pain relievers also contain Tylenol/acetaminophen. Please ensure that your total dose of acetaminophen from all sources does not exceed 3 g (3000 mg) per day.
[2022-10-28 12:39] VITALS: BP 132/95
== END 2022-10-28 12:35 | disposition home or self-care (01) ==
LOC: ED 09:51
DX: M06.9 Rheumatoid arthritis, unspecified (principal)
CPT/HCPCS: 96372; 99283; 99284; J1170

== ENCOUNTER 2023-06-02 07:30 | Outpatient (CLI) | payer MEDICAID ==
[2023-06-02 07:49] LABS: BASOPHILS % (AUTO) 0.6 %; EOSINOPHILS # (AUTO) 0.2 10^3/uL (0.0-0.7); EOSINOPHILS % (AUTO) 2.9 %; HCT - HEMATOCRIT 44.4 % (37.0-47.0); HGB - HEMOGLOBIN 15.2 g/dL (12.0-16.0); LYMPHOCYTES # (AUTO) 1.6 10^3/uL (1.5-3.5); LYMPHOCYTES % (AUTO) 31.4 %; MEAN CORPUSCULAR HEMOGLOBIN 31.3 pg (27.0-31.0); MEAN CORPUSCULAR HGB CONC 34.2 g/dL (32.0-36.0); MEAN CORPUSCULAR VOLUME 91.4 fL (81.0-99.0); MEAN PLATELET VOLUME 11.2 fL (7.9-10.8); MONOCYTES # (AUTO) 0.5 10^3/uL (0.0-1.0); MONOCYTES % (AUTO) 9.6 %; NEUTROPHILS # (AUTO) 2.9 10^3/uL (1.5-6.6); NEUTROPHILS % (AUTO) 55.1 %; PLT - PLATELET COUNT 172 10^3/uL (130-450); RED BLOOD COUNT 4.86 10^6/uL (4.20-5.40); RED CELL DISTRIBUTION WIDTH 12.7 % (12.0-15.0); WHITE BLOOD COUNT 5.2 x10^3/uL (4.8-10.8)
[2023-06-02 08:23] LABS: ALBUMIN 4.4 g/dL (3.2-5.5); ALBUMIN/GLOBULIN RATIO 1.7 (1.0-2.2); ALKALINE PHOSPHATASE 52 IU/L (42-121); ALT ALANINE AMINOTRANSFERASE 15 IU/L (10-60); AST ASPARTATE AMINOTRANSFERASE 13 IU/L (10-42); BILIRUBIN,TOTAL 1.7 mg/dL (0.2-1.0); BUN - BLOOD UREA NITROGEN 14 mg/dL (6-20); CALCIUM 9.8 mg/dL (8.5-10.3); CARBON DIOXIDE - CO2 24 mmol/L (21-32); CHLORIDE 108 mmol/L (101-111); CHOL/HDL RATIO 2.3 (<4.4); CHOLESTEROL 104 mg/dL; CREATININE 0.7 mg/dL (0.6-1.3); GFR - MDRD 89 (>89); GLUCOSE 94 mg/dL (74-104); HDL CHOLESTEROL 45 mg/dL; LDL CHOLESTEROL,CALCULATED 33 mg/dL; LDL/HDL RATIO 0.7 (<4.4); POTASSIUM 3.9 mmol/L (3.5-4.5); SODIUM 139 mmol/L (135-145); TRIGLYCERIDES 130 mg/dL (48-352); VLDL CHOLESTEROL 26 mg/dL
== END 2023-06-02 07:31 | disposition home or self-care (01) ==
LOC: LAB 07:30
PROVIDERS: ATTEND Internal Medicine Interventional Cardiology
DX: I25.2 Old myocardial infarction (principal)
CPT/HCPCS: 36415; 80053; 80061; 83721; 85025

== ENCOUNTER 2023-06-24 11:10 | Emergency (ER) | payer MEDICAID ==
[2023-06-24 11:34] VITALS: O2SAT 100
[2023-06-24 11:52] LABS: BASOPHILS % (AUTO) 0.3 %; EOSINOPHILS # (AUTO) 0.2 10^3/uL (0.0-0.7); EOSINOPHILS % (AUTO) 4.5 %; HCT - HEMATOCRIT 46.9 % (37.0-47.0); HGB - HEMOGLOBIN 15.6 g/dL (12.0-16.0); LYMPHOCYTES % (AUTO) 28.7 %; MEAN CORPUSCULAR HEMOGLOBIN 30.5 pg (27.0-31.0); MEAN CORPUSCULAR HGB CONC 33.3 g/dL (32.0-36.0); MEAN CORPUSCULAR VOLUME 91.8 fL (81.0-99.0); MONOCYTES # (AUTO) 0.5 10^3/uL (0.0-1.0); MONOCYTES % (AUTO) 14.8 %; NEUTROPHILS # (AUTO) 1.7 10^3/uL (1.5-6.6); NEUTROPHILS % (AUTO) 51.7 %; PLT - PLATELET COUNT 147 10^3/uL (130-450); RED BLOOD COUNT 5.11 10^6/uL (4.20-5.40); RED CELL DISTRIBUTION WIDTH 12.6 % (12.0-15.0); WHITE BLOOD COUNT 3.3 x10^3/uL (4.8-10.8)
--- NOTE | 2023-06-24 11:59 | XRAY Report ---
PROCEDURE: Chest 1V INDICATIONS: Chest pain TECHNIQUE: One view of the chest was acquired. COMPARISON: Single view the chest dated 10/16/2022. FINDINGS: Surgical changes and devices: None. Lungs and pleura: No pleural effusions or pneumothorax. Lungs are clear. Mediastinum: Mediastinal contours appear normal. Heart size is normal. Bones and chest wall: No suspicious bony lesions. Overlying soft tissues appear unremarkable. IMPRESSION: No acute cardiopulmonary process. Reviewed by: Jasmin Zabala MD on 06/24/2023 11:58 AM PDT Approved by: Jasmin Zabala MD on 06/24/2023 11:58 AM PDT Station ID: [id number]
[2023-06-24 12:07] LABS: ALBUMIN 4.4 g/dL (3.2-5.5); ALBUMIN/GLOBULIN RATIO 1.6 (1.0-2.2); BILIRUBIN,TOTAL 1.3 mg/dL (0.2-1.0); CALCIUM 10.1 mg/dL (8.5-10.3); CREATININE 0.6 mg/dL (0.6-1.3); POTASSIUM 3.7 mmol/L (3.5-4.5); TOTAL PROTEIN 7.1 g/dL (6.4-8.9)
[2023-06-24 12:12] LABS: TROPONIN I HIGH SENSITIVITY 2.8 ng/L (2.3-14.8)
--- NOTE | 2023-06-24 12:34 | ED Physician Documentation ---
PD HPI CHEST PAIN - Stated complaint Stated Complaint: CP/HIGH BP - Chief complaint Chief Complaint: Cardiac - Additional information Additional information: 48-year-old female presents emergency department for chest pain. Patient says that she has fibromyalgia and she gets recurrent chest pressure chest pain as well as severe anxiety that she says is hard to differentiate if this chest pain is new or not she is unable to tell me when it started because she says it has been going on for so long but with her anxiety she is nervous that maybe this is cardiac related. No dizziness no nausea vomiting no shortness of breath she says that chest pain is right in her mid sternum area does not radiate anywhere. No recent leg swelling. 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 : None HEENT: None Psych: None Musculoskeletal: Osteoarthritis, Fibromyalgia Derm: Psoriasis - Past Surgical History Past Surgical History: Yes /FILM RECORDIST: Hysterectomy - Present Medications Home Medications: Ambulatory Orders Medication Instructions Recorded Confirmed Atorvastatin Calcium [Lipitor] 80 mg PO DAILY 09/18/22 10/28/22 Losartan [Cozaar] 50 mg PO DAILY 09/18/22 10/28/22 Metoprolol Succinate [Toprol Xl] 50 mg PO DAILY 09/18/22 10/28/22 Risankizumab-Rzaa [Skyrizi] 1 ml SUBQ .MONTHLY 09/18/22 10/28/22 oxyCODONE [Roxicodone] 5 mg PO BID #15 tablet 10/28/22 - Allergies Allergies/Adverse Reactions: Allergies Allergy/AdvReac Type Severity Reaction Status Date / Time Penicillins Allergy Rash Verified 06/24/23 11:29 - Social History Does the pt smoke?: No Smoking Status: Never smoker Does the pt drink ETOH?: No Does the pt have substance abuse?: Yes - Immunizations Immunizations are current?: Yes - POLST Patient has POLST: No Results - Vitals Vitals: Vital Signs - 24 hr 06/24/23 06/24/23 06/24/23 11:15 11:29 13:08 Temperature 36.6 C 36.6 C Heart Rate 81 69 Respiratory 16 16 16 Rate Blood Pressure 156/82 H 150/99 H O2 Saturation 100 100 Oxygen O2 Source Room air - EKG (time done) 1123 EKG releavant findings:: EKG personally interpreted by author of this note. Relevant findings are: Rate: Rate (enter#) (71) Rhythm: NSR [place]: Normal Intervals: Normal AK QRS: Normal Ischemia: Other (flattened T waves to the inferior leads) Other comments: Other comments Computer interpretation: Agree with computer - Labs Labs: Laboratory Tests 06/24/23 06/24/23 06/24/23 11:46 11:46 11:46 WBC 3.3 L RBC 5.11 Hgb 15.6 Hct 46.9 MCV 91.8 MCH 30.5 MCHC 33.3 RDW 12.6 Plt Count 147 MPV 11.0 H Neut # (Auto) 1.7 Lymph # (Auto) 1.0 L [place] # (Auto) 0.5 Eos # (Auto) 0.2 Baso # (Auto) 0.0 Absolute Nucleated RBC 0.00 Nucleated RBC % 0.0 Sodium 140 Potassium 3.7 Chloride 107 Carbon Dioxide 29 Anion Gap 4.0 L BUN 8 Creatinine 0.6 Estimated GFR (MDRD) 106 Glucose 86 Calcium 10.1 Magnesium 1.9 Total Bilirubin 1.3 H AST 21 ALT 24 Alkaline Phosphatase 50 Troponin I High Sens 2.8 Total Protein 7.1 Albumin 4.4 Globulin 2.7 Albumin/Globulin Ratio 1.6 Lipase 15 Nasal Adenovirus (PCR) Nasal B. parapertussis DNA (PCR) Nasal Coronavir 229E PCR Nasal Coronavir HKU1 PCR Nasal Coronavir NL63 PCR Nasal Coronavir OC43 PCR Nasal Enterovir/Rhinovir PCR Nasal Influenza B PCR Nasal Influenza A PCR Nasal Parainfluen 1 PCR Nasal Parainfluen 2 PCR Nasal Parainfluen 3 PCR Nasal Parainfluen 4 PCR Nasal RSV (PCR) Nasal B.pertussis DNA PCR Nasal C.pneumoniae (PCR) [place] Human Metapneumo PCR Nasal M.pneumoniae (PCR) Nasal SARS-CoV-2 (PCR) 06/24/23 13:10 WBC RBC Hgb Hct MCV MCH MCHC RDW Plt Count MPV Neut # (Auto) Lymph # (Auto) [place] # (Auto) Eos # (Auto) Baso # (Auto) Absolute Nucleated RBC Nucleated RBC % Sodium Potassium Chloride Carbon Dioxide Anion Gap BUN Creatinine Estimated GFR (MDRD) Glucose Calcium Magnesium Total Bilirubin AST ALT Alkaline Phosphatase Troponin I High Sens Total Protein Albumin Globulin Albumin/Globulin Ratio Lipase Nasal Adenovirus (PCR) NOT DETECTED Nasal B. parapertussis DNA (PCR) NOT DETECTED Nasal Coronavir 229E PCR NOT DETECTED Nasal Coronavir HKU1 PCR NOT DETECTED Nasal Coronavir NL63 PCR NOT DETECTED Nasal Coronavir OC43 PCR NOT DETECTED Nasal Enterovir/Rhinovir PCR NOT DETECTED Nasal Influenza B PCR NOT DETECTED Nasal Influenza A PCR NOT DETECTED Nasal Parainfluen 1 PCR NOT DETECTED Nasal Parainfluen 2 PCR NOT DETECTED Nasal Parainfluen 3 PCR NOT DETECTED Nasal Parainfluen 4 PCR NOT DETECTED Nasal RSV (PCR) NOT DETECTED Nasal B.pertussis DNA PCR NOT DETECTED Nasal C.pneumoniae (PCR) NOT DETECTED [place] Human Metapneumo PCR NOT DETECTED Nasal M.pneumoniae (PCR) NOT DETECTED Nasal SARS-CoV-2 (PCR) NOT DETECTED - Rads (name of study) Chest x-ray Relevant Findings:: Final report received, EMP independent interpretation of test, Other (No cardiopulmonary abnormalities) PD Medical Decision Making - ED course ED course: Exam without evidence of volume overload so doubt heart failure. EKG without signs of active ischemia. Given the timing of pain to ER presentation, single troponin was negative so doubt NSTEMI. Presentation not consistent with acute PE (PERC negative), pneumothorax (not visualized on chest xr), thoracic aortic dissection, pericarditis, tamponade, pneumonia (no infectious symptoms, clear chest xr), myocarditis (no recent illness, neg trop). HEART score:2 so discharge patient home with PCP follow up Departure - Departure Disposition: 01 Home, Self Care Clinical Impression: Chest pain Qualifiers: Chest pain type: unspecified Qualified Code(s): R07.9 - Chest pain, unspecified Instructions: ED Chest Pain NonCardiac, ED Chest Pain Atypical Unkn Cause Comments: Thank you for trusting us with your care. We have completed labs and I am not seeing any significant abnormalities making me concerned that this is related to a heart attack. We have also completed an EKG which is also overall normal. Your chest x-ray is also found to be normal. At this point, believe that you are safe for discharge we have given you some potassium to help with your low potassium as well as some hydroxyzine to help with your anxiety. Please follow- up with your primary care provider for further evaluation of this recurrent chest pain that is most likely due to your fibromyalgia. Feel free to come back to the emergency department if your chest pain changes in the pattern gets any worse or if you are starting to have any vision changes dizziness or increased shortness of breath. Forms: PCP List Discharge Date/Time: 06/24/23 13:31
[2023-06-24] MEDS: POTASSIUM CHLORIDE 20 MEQ TABLET PO STA (13:05)
[2023-06-24] MEDS: hydrOXYzine PAMOATE 25 MG CAPSULE PO STA (13:05)
[2023-06-24 13:12] VITALS: BP 150/99
[2023-06-24 14:04] LABS: B. PARAPERTUSSIS- RESP PCR PAN NOT DETECTED; B. PERTUSSIS- RESP PCR PANEL NOT DETECTED; C. PNEUMONIAE- RESP PCR PANEL NOT DETECTED; CORONAVIRUS 229E-RESP PCR NOT DETECTED; CORONAVIRUS HKU1-RESP PCR NOT DETECTED; CORONAVIRUS NL63-RESP PCR NOT DETECTED; CORONAVIRUS OC43-RESP PCR NOT DETECTED; HUMAN METAPNEUMOVIRUS NOT DETECTED; INFLUENZA A- RESP PCR PANEL NOT DETECTED; INFLUENZA B - RESP PCR PANEL NOT DETECTED; M. PNEUMONIAE- RESP PCR PANEL NOT DETECTED; PARAINFLUENZA VIRUS 1 NOT DETECTED; PARAINFLUENZA VIRUS 2 NOT DETECTED; PARAINFLUENZA VIRUS 3 NOT DETECTED; PARAINFLUENZA VIRUS 4 NOT DETECTED; RHINOVIRUS/ENTEROVIRUS NOT DETECTED; RSV- RESP PCR PANEL NOT DETECTED; SARS-CoV-2 -RESP PCR PANEL NOT DETECTED
== END 2023-06-24 13:31 | disposition home or self-care (01) ==
LOC: ED 11:10
DX: R07.9 Chest pain, unspecified (principal); M79.7 Fibromyalgia; Z79.899 Other long term (current) drug therapy
CPT/HCPCS: 36415; 71045; 80053; 83690; 83735; 84484; 85025; 87633; 93005; 99283; 99284; A9270

== ENCOUNTER 2023-07-17 07:13 | Outpatient (CLI) | payer MEDICAID ==
[2023-07-17 07:52] LABS: BUN - BLOOD UREA NITROGEN 9 mg/dL (6-20); CALCIUM 9.9 mg/dL (8.5-10.3); CARBON DIOXIDE - CO2 30 mmol/L (21-32); CHLORIDE 109 mmol/L (101-111); CHOL/HDL RATIO 2.3 (<4.4); CHOLESTEROL 117 mg/dL; CREATININE 0.6 mg/dL (0.6-1.3); GFR - MDRD 106 (>89); GLUCOSE 100 mg/dL (74-104); HDL CHOLESTEROL 50 mg/dL; LDL CHOLESTEROL,CALCULATED 43 mg/dL; LDL/HDL RATIO 0.9 (<4.4); POTASSIUM 4.4 mmol/L (3.5-4.5); SODIUM 142 mmol/L (135-145); TRIGLYCERIDES 122 mg/dL (48-352); VLDL CHOLESTEROL 24 mg/dL
== END 2023-07-17 07:14 | disposition home or self-care (01) ==
LOC: LAB 07:13
PROVIDERS: ATTEND Internal Medicine Interventional Cardiology
DX: I25.2 Old myocardial infarction (principal)
CPT/HCPCS: 36415; 80048; 80061; 83721

== ENCOUNTER 2023-08-30 11:06 | Outpatient (CLI) | payer MEDICAID ==
[2023-08-30 11:37] LABS: BASOPHILS % (AUTO) 0.4 %; EOSINOPHILS # (AUTO) 0.1 10^3/uL (0.0-0.7); EOSINOPHILS % (AUTO) 1.1 %; HCT - HEMATOCRIT 46.1 % (37.0-47.0); HGB - HEMOGLOBIN 15.6 g/dL (12.0-16.0); LYMPHOCYTES % (AUTO) 16.9 %; MEAN CORPUSCULAR HEMOGLOBIN 31.3 pg (27.0-31.0); MEAN CORPUSCULAR HGB CONC 33.8 g/dL (32.0-36.0); MEAN CORPUSCULAR VOLUME 92.4 fL (81.0-99.0); MEAN PLATELET VOLUME 11.1 fL (7.9-10.8); MONOCYTES # (AUTO) 0.4 10^3/uL (0.0-1.0); MONOCYTES % (AUTO) 7.7 %; NEUTROPHILS # (AUTO) 4.1 10^3/uL (1.5-6.6); NEUTROPHILS % (AUTO) 73.7 %; PLT - PLATELET COUNT 145 10^3/uL (130-450); RED BLOOD COUNT 4.99 10^6/uL (4.20-5.40); RED CELL DISTRIBUTION WIDTH 12.7 % (12.0-15.0); WHITE BLOOD COUNT 5.6 x10^3/uL (4.8-10.8)
[2023-08-30 11:52] LABS: ALBUMIN 4.8 g/dL (3.2-5.5); ALBUMIN/GLOBULIN RATIO 1.8 (1.0-2.2); ALKALINE PHOSPHATASE 56 IU/L (42-121); ALT ALANINE AMINOTRANSFERASE 16 IU/L (10-60); AST ASPARTATE AMINOTRANSFERASE 14 IU/L (10-42); BILIRUBIN,TOTAL 2.4 mg/dL (0.2-1.0); BUN - BLOOD UREA NITROGEN 18 mg/dL (6-20); CALCIUM 10.1 mg/dL (8.5-10.3); CARBON DIOXIDE - CO2 22 mmol/L (21-32); CHLORIDE 108 mmol/L (101-111); CHOL/HDL RATIO 2.2 (<4.4); CHOLESTEROL 109 mg/dL; CREATININE 0.5 mg/dL (0.6-1.3); GFR - MDRD 131 (>89); GLUCOSE 92 mg/dL (74-104); HDL CHOLESTEROL 50 mg/dL; LDL CHOLESTEROL,CALCULATED 41 mg/dL; LDL/HDL RATIO 0.8 (<4.4); POTASSIUM 3.7 mmol/L (3.5-4.5); SODIUM 138 mmol/L (135-145); TOTAL PROTEIN 7.4 g/dL (6.4-8.9); TRIGLYCERIDES 88 mg/dL (48-352); VLDL CHOLESTEROL 18 mg/dL
[2023-08-30 11:58] LABS: THYROID STIMULATING HORMONE 1.13 uIU/mL (0.34-5.60)
== END 2023-08-30 11:07 | disposition home or self-care (01) ==
LOC: LAB 11:06
PROVIDERS: ATTEND Nurse Practitioner
DX: G62.9 Polyneuropathy, unspecified (principal); Z13.220 Encounter for screening for lipoid disorders
CPT/HCPCS: 36415; 80053; 80061; 82607; 83721; 84443; 85025

== ENCOUNTER 2023-09-30 14:08 | Outpatient (CLI) | payer MEDICAID ==
--- NOTE | 2023-10-01 09:49 | Ultrasound Report ---
LIMITED ULTRASOUND OF LEFT BREAST: 09/30/2023 CLINICAL: Patient returns today to evaluate a focal asymmetry in the left breast. Comparison is made to exams dated: 09/30/2023 mammogram, 07/23/2022 mammogram, 03/10/2019 mammogram, ultrasound, and 02/23/2019 mammogram - [facility]. Color flow and real-time ultrasound of the left breast 8 o'clock region were performed. Peguero scale images of the real-time examination were reviewed. No significant abnormalities were seen sonographically in the left breast. Specifically, no finding to correspond to the patient's high density, more prominent mammographic abnormality. There is focal dense fibroglandular tissue in this area. IMPRESSION: NEGATIVE There is no sonographic correlate to the patient's mammographic asymmetry and no evidence of malignan cy. Return to annual mammogram screening schedule is recommended. Findings and recommendations were conveyed to the patient at time of exam. This exam was interpreted at Station ID: [id number]. Electronically Signed By: Angeline capone/:09/30/2023 15:45:12 letter sent: No_Letter Ultrasound BI-RADS: 1 Negative BI-RADS CATEGORY: (1) - 1 Mammogram [id number] return to screening LATERALITY: (B)
--- NOTE | 2023-10-01 09:49 | Ultrasound Report ---
LIMITED ULTRASOUND OF RIGHT BREAST AND AXILLA: 09/30/2023 CLINICAL: Palpable right axilla lump. Comparison is made to exam dated: 09/30/2023 mammogram - [facility]. Color flow ultrasound of the right breast axilla was performed. Peguero scale images of the real-time e xamination were reviewed. There is a benign normal lymph node in the right axillary tail. This corresponds to the palpable abn ormality. IMPRESSION: BENIGN There is no sonographic evidence of malignancy. The palpable, normal lymph node is benign. Return to annual mammogram screening schedule is recommended. Findings and recommendations were conveyed to the patient at time of exam. This exam was interpreted at Station ID: [id number]. Electronically Signed By: Angeline capone/:09/30/2023 15:46:38 letter sent: No_Letter Ultrasound BI-RADS: 2 Benign BI-RADS CATEGORY: (2) - 2 Mammogram [id number] return to screening LATERALITY: (B)
--- NOTE | 2023-10-01 09:49 | Mammography Report ---
BILATERAL DIGITAL DIAGNOSTIC MAMMOGRAM 3D/2D WITH AXILLARY TAIL: 09/30/2023 CLINICAL: Palpable right axilla lump. Due for bilateral exam. Comparison is made to exams dated: 07/23/2022 mammogram, 03/10/2019 mammogram, and 02/23/2019 mammogr - [facility]. Both breasts are heterogeneously dense, which may obscure small masses (category c / 51-75% glandular tissue). Normal, stable right breast mammogram and axilla. No finding to correspond to the patient's right axi llary palpable abnormality. There is an irregular high density asymmetry in the left breast at 8 o'clock anterior depth. This is more prominent on tomography gradually over previous years. No other significant masses, calcifications, or other findings are seen in either breast. IMPRESSION: INCOMPLETE: NEEDS ADDITIONAL IMAGING EVALUATION No mammographic abnormality in the right axilla to correlate to the palpable abnormality. Ultrasound is recommended for full evaluation of this area. This was performed immediately following this exam. The irregular high density asymmetry in the left breast most likely is fibroglandular tissue but cherelle ins indeterminate. An ultrasound is recommended. This was performed immediately following this exam . Bilateral mammograms are otherwise stable. Based on the Tyrer Cuzick model (a risk assessment model) the patient's lifetime risk is 9.8% and her 10 year risk is 2.2%. According to the ACR, ACS, and NCCN guidelines, an annual breast MRI exam kisha g with mammogram is recommended if the patient's lifetime risk is 20% or greater. This exam was interpreted at Station ID: [id number]. NOTE: For mammograms, a report in lay terms will be sent to the patient. Approximately 15% of breast malignancies will not be visualized mammographically. In the management of a palpable breast mass, a negative mammogram must not discourage biopsy of a clinically suspicious lesion. Electronically Signed By: Angeline capone/:09/30/2023 15:43:35 ACR BI-RADS Category 0: Incomplete 3340F PARENCHYMAL PATTERN: (D) - The breast(s) demonstrate(s) heterogeneously dense fibroglandular parkathie catherine. BI-RADS CATEGORY: (0) - 0 Ultrasound [id number] Immediate follow-up LATERALITY: (B)
== END 2023-09-30 14:09 | disposition home or self-care (01) ==
LOC: DI 14:08
PROVIDERS: ATTEND Nurse Practitioner
DX: N63.11 Unspecified lump in the right breast, upper outer quadrant (principal); R92.333 Mammographic heterogeneous density, bilateral breasts